=== PATIENT | male | born 1950 | race Caucasian/White ===

== ENCOUNTER 2019-06-01 17:56 | Inpatient (IN) | payer MEDICARE, MEDICAID ==
[2019-06-02 12:49] VITALS: BP 139/80
[2019-06-02] MEDS ORDERED: Magnesium Hydroxide (MOM) 30 mL UDC PO PRN (14:10)
[2019-06-02] MEDS ORDERED: Maalox 30 mL Cup PO PRN (14:10)
[2019-06-02] MEDS ORDERED: GLUCAGON HCl 1 MG KIT IM PRN (15:58)
[2019-06-02] MEDS: INSULIN LISPRO SLIDING SCALE 100 UNITS/ML UNIT SUBQ SCH ×2 (16:45→21:02)
[2019-06-03] MEDS: INSULIN LISPRO SLIDING SCALE 100 UNITS/ML UNIT SUBQ SCH ×4 (06:47→21:55)
[2019-06-03] MEDS: Multivitamin Tab PO SCH (08:40)
[2019-06-03] MEDS: Pantoprazole 40 mg/Packet PO SCH (08:45)
--- NOTE | 2019-06-03 13:16 | Consultation ---
DATE OF CONSULTATION: 06/03/2019 REASON FOR CONSULTATION: Medical management and clearance, admitted on inpatient unit. HISTORY OF PRESENT ILLNESS: This is a 68-year-old male with history of hyperlipidemia, BPH, osteoarthritis, chronic pain syndrome, diabetes, narcolepsy, admitted under the service of Dr. Dowling. The patient denies any fever, chills, no weight loss or chest pain. PAST MEDICAL HISTORY: As mentioned in history of present illness. PAST SURGICAL HISTORY: Status post, T and A. ALLERGIES: No known drug allergies. MEDICATIONS: The patient is on Tylenol, atorvastatin, brimonidine eyedrops, vitamin D, Lexapro, ____, insulin sliding scale, Namenda, metformin, Provigil, multivitamins, pantoprazole, atenolol. FAMILY HISTORY: Noncontributory. SOCIAL HISTORY: The patient is a nonsmoker, nondrinker, no intravenous drug use. 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 The patient is with 1 child. REVIEW OF SYSTEMS: GENERAL: The patient denies any constitutional symptoms. HEENT: The patient with some blurred vision, no pain. LUNGS: No diagnosis of COPD or asthma. HEART: The patient denies hypertension. Denies coronary artery disease. ABDOMEN: No nausea, vomiting or pain. GENITOURINARY: The patient denies any increased frequency, dysuria or hematuria. NEUROLOGIC: No headache, seizure or syncope, history of epilepsy. PSYCHIATRIC: See above. ENDOCRINE: The patient has diabetes. HEMATOLOGY: No ischemia. PHYSICAL EXAMINATION: VITAL SIGNS: Blood pressure 118/66, respiration 20, pulse 82, temperature 97.8. GENERAL: Thin built elderly male patient with a female nurse in the room. NECK: Supple. No masses. LUNGS: Equal breath sounds, otherwise clear to auscultation. HEART: Regular rate and rhythm with systolic ejection murmur. ABDOMEN: Soft, globular. EXTREMITIES: Positive excoriation. NEUROLOGIC: pls refer to dr cruz for mental exam crnial nerve exam 1. The patient is able to smell alcohol swab. 2. Able to read a printed page. 3. Able to move eyeballs both upward and outward 4. Able to move eyebrows inward and downward 5. able to clench teeth and has normal sensation of forehead____. 6. The patient is able to move eyes laterally on both sides 7 abke to move eyebrows upward on both sides 8 able to hear rubbing of fingers on both sides 9 this was offered but refused 10 this was offered but pt refused 11 this was offered but pt refused 12 this was offered but pt refused Motor and sensory were equal and symmetrical. Gait is slow. LABORATORY DATA: Pending. ASSESSMENT AND PLAN: Hypercholesterolemia, BPH, chronic pain syndrome, osteoarthritis, diabetes, narcolepsy, continue the patient on statin medication. Continue oral hypoglycemics and fingerstick. Continue on a proton pump inhibitor as well as pain medications. The patient will be placed on fall precaution. We will continue to follow with you, Dr. Dowling. JOB# [id number]
--- NOTE | 2019-06-03 19:07 | Psychiatric Evaluation ---
DATE OF SERVICE: 06/03/2019 JUSTIFICATION FOR HOSPITALIZATION: Agitation, aggression escalation of behaviors, worsening confusion. HISTORY OF PRESENT ILLNESS: This is a 68-year-old male, currently in the hospital. He believes he is in the hospital for "the virus." The patient is oriented to name, place, not situation, he knows the year, the month, the day of the week. 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 Staff had to put a sign on his door with his name on it because he is wandering into other patients' rooms. At the retirement, he was escalating, intrusive, yelling at staff at times. Staff was fearful he would act out, lash out. PAST PSYCHIATRIC HISTORY: Advanced dementia. FAMILY HISTORY: Unclear. SOCIAL HISTORY: The patient was born in [place], not , has 1 adult son, living in a retirement. MEDICATIONS: Reviewed. MENTAL STATUS EXAMINATION: Unkempt, fair eye contact. Speech, decreased content. Mood "okay." Affect flat. Thought processes were confused, forgetful, disorganized. No current SI or HI. Delusions about running a company. Insight poor. PROVISIONAL DIAGNOSES: Dementia, dementia with behaviors; mood, unspecified; anxiety, unspecified; psychosis, unspecified; rule out delusional disorder. MEDICAL: Please see full H and P. ESTIMATED LENGTH OF STAY: 7-10 days. ASSESSMENT: The patient is requiring hospitalization, aggressive, agitated, delusional. Staff at the assisted could not care for him. PLAN: Treatment plan includes group as well as milieu therapy. I will adjust medications. Continue inpatient hospitalization. CONDITIONS FOR DISCHARGE: Improved mood, improved affect, better control of any anger or agitation. JOB# [id number]
[2019-06-04] MEDS: INSULIN LISPRO SLIDING SCALE 100 UNITS/ML UNIT SUBQ SCH ×4 (06:32→21:25)
[2019-06-04] MEDS: Pantoprazole 40 mg/Packet PO SCH (08:49)
[2019-06-04] MEDS: Multivitamin Tab PO SCH (08:50)
[2019-06-04] MEDS: Escitalopram Oxalate 5 mg Tab PO SCH ×2 (08:53→08:54)
--- NOTE | 2019-06-04 19:58 | Progress Notes ---
DATE: 06/04/2019 COVERING FOR: Dr. Kaleb Dowling. SUBJECTIVE: The patient was interviewed and the case was discussed with staff. The chart and records were reviewed. Per the staff, the patient has been with escalating anger, episodes of confusion and also grandiose delusions. The patient was interviewed this afternoon in the [facility]. The patient reports "I don't know why I am here." The patient reports that "I need to get out of here. 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 The patient in addition reports no side effects to his medications. He also gets increasingly irritable and starts following the provider ____ and delusion. MENTAL STATUS EXAMINATION: The patient is an elderly male with fair hygiene. Limited eye contact. His speech is hyperverbal. His mood and affect appear to be blunted and thought process appears to be loose. He is denying any suicidal or homicidal thoughts. He is denying any hallucinations. He appears to be paranoid and grandiose. He is alert and oriented to name only. His insight, judgment and impulse control appear to be poor at this time. ASSESSMENT: This is a 68-year-old male, admitted to [facility] on a 5150 hold. The patient was admitted due to delusions and escalating anger and behavior issues. The patient at this time has ongoing ____ grandiose delusions that he is training nurses and that he is here to solve the virus problem. He also had escalating anger episode. PLAN: We will continue the patient's acute hospitalization. We will continue the medications as prescribed. We encouraged the patient to verbalize his needs and participate in group and milieu therapy. JOB# [id number]
--- NOTE | 2019-06-04 22:26 | Internal Medicine Prog Note ---
Internal Medicine Subjective - Subjective Patient seen and examined:: with staff, chart reviewed Patient is:: awake, verbal, interactive, talking Per staff patient has:: no adverse event, no episodes of fall, poor oral intake , tolerating meds Internal Medicine Objective - Results Recent Labs: Laboratory Last Values POC Glucose 106 MG/DL (70 - 105) H 06/04/19 21:14 - Physical Exam Vitals and I&O: Vital Signs Temp 98 F 06/04/19 20:11 Pulse 72 06/04/19 21:00 Resp 18 06/04/19 20:11 BP 94/56 06/04/19 21:00 Pulse Ox 98 06/04/19 20:11 Intake & Output 06/04/19 06/04/19 06/05/19 06:59 18:59 06:59 Intake Total 480 240 Balance 480 240 Intake: Oral 480 240 Other: # Voids 1 1 Active Medications: Current Medications Acetaminophen (Tylenol) 650 mg PO Q6H PRN PRN Reason: mild pain Stop: 08/01/19 15:14 Acetaminophen (Tylenol) 650 mg PO Q6H PRN PRN Reason: fever >100.5 Stop: 08/01/19 15:19 Al Hydrox/Mg Hydrox/Simethicone (Maalox) 30 ml PO Q4HR PRN PRN Reason: GI DISTRESS Stop: 08/01/19 14:09 Atorvastatin Calcium (Lipitor) 80 mg PO HS [facility]; Protocol Stop: 08/01/19 20:59 Last Admin: 06/04/19 21:00 Dose: 80 mg Brimonidine Tartrate (Alphagan 0.2% Ophth Soln) 1 drop EACH EYE Q8HR [facility] Stop: 08/02/19 04:59 Last Admin: 06/04/19 21:00 Dose: 1 drop Dextrose (Glutose 40%) 18.75 gm PO PRN PRN PRN Reason: Blood Glucose less than 70 Stop: 08/01/19 15:57 Dorzolamide HCl (Trusopt 2% Ophth Soln) 1 drop EACH EYE BID [facility] Stop: 08/01/19 16:59 Last Admin: 06/04/19 17:05 Dose: 1 drop Ergocalciferol (Vitamin D2) 50,000 iu PO QSUN [facility] Stop: 08/04/19 08:59 Escitalopram Oxalate (Lexapro) 5 mg PO DAILY [facility]; Protocol Stop: 08/02/19 08:59 Last Admin: 06/04/19 08:54 Dose: Not Given Glimepiride (Amaryl) 4 mg PO QDAC [facility] Stop: 08/02/19 07:29 Last Admin: 06/04/19 07:30 Dose: 4 mg Glucagon (Glucagen) 1 mg IM PRN PRN PRN Reason: Blood Glucose less than 70 Stop: 08/01/19 15:57 Insulin Human Lispro (Humalog Insulin Sliding Scale) 0 units SUBQ ACHS [facility]; Protocol Stop: 08/01/19 16:29 Last Admin: 06/04/19 21:25 Dose: Not Given Latanoprost (Xalatan 0.005% Ophth Soln) 1 drop EACH EYE HS [facility] Stop: 08/01/19 20:59 Last Admin: 06/04/19 21:00 Dose: 1 drop Lorazepam (Ativan) 0.5 mg PO Q4HR PRN; Protocol PRN Reason: Anxiety Stop: 07/02/19 14:09 Magnesium Hydroxide (Milk Of Magnesia) 30 ml PO HS PRN PRN Reason: Constipation Memantine (Namenda) 5 mg PO DAILY [facility] Stop: 08/02/19 08:59 Last Admin: 06/04/19 08:50 Dose: 5 mg Metformin HCl (Glucophage) 1,000 mg PO BIDWM [facility] Stop: 08/02/19 11:59 Last Admin: 06/04/19 18:00 Dose: 1,000 mg Modafinil (Provigil) 200 mg PO BID [facility]; Protocol Stop: 08/01/19 16:59 Last Admin: 06/04/19 17:05 Dose: 200 mg Multivitamins/Vitamin C (Theragran) 1 tab PO DAILY [facility] Stop: 08/02/19 08:59 Last Admin: 06/04/19 08:50 Dose: 1 tab Pantoprazole Sodium (Protonix) 20 mg PO DAILY [facility] Stop: 08/02/19 08:59 Last Admin: 06/04/19 08:49 Dose: 20 mg Terazosin HCl (Hytrin) 1 mg PO HS [facility] Stop: 08/01/19 20:59 Last Admin: 06/04/19 21:00 Dose: Not Given Timolol Maleate (Timoptic 0.5% Ophth Soln) 1 drop EACH EYE BID [facility] Stop: 08/01/19 16:59 Last Admin: 06/04/19 18:00 Dose: 1 drop Zolpidem Tartrate (Ambien) 5 mg PO HS PRN PRN Reason: Insomnia Stop: 08/01/19 14:09 General: alert HEENT: NC/AT, PERRLA Neck: Supple, No JVD Lungs: CTAB Cardiovascular: RRR, Normal S1, Normal S2, with murmur Abdomen: soft, non-tender, thin, positive bowel sound Extremities: excoriation Neurological: no change Internal Medicine Assmt/Plan - Assessment Assessment: ASSESSMENT AND PLAN: Hypercholesterolemia, BPH, chronic pain syndrome, osteoarthritis, diabetes, narcolepsy, - Plan Plan: PLAN: continue the patient on statin medication. Continue oral hypoglycemics and fingerstick. Continue on a proton pump inhibitor as well as pain medications. The patient will be placed on fall precaution. We will continue to follow with you, Dr. Dowling.
[2019-06-05] MEDS: INSULIN LISPRO SLIDING SCALE 100 UNITS/ML UNIT SUBQ SCH ×4 (06:59→21:02)
[2019-06-05] MEDS: Pantoprazole 40 mg/Packet PO SCH (08:57)
[2019-06-05] MEDS: Escitalopram Oxalate 5 mg Tab PO SCH (08:58)
[2019-06-05] MEDS: Multivitamin Tab PO SCH (08:58)
--- NOTE | 2019-06-05 16:49 | Progress Notes ---
DATE: 06/05/2019 Covering for Kaleb Dowling M.D. SUBJECTIVE: The patient was interviewed. Case was discussed with staff. Chart and records were reviewed. Per the staff, the patient has been confused. He has been intrusive. He has been very disruptive towards others. He needs constant redirection on the unit and he has poor insight to why he is here in the hospital. I attempted to interview the patient, but the patient was uncooperative. He appears anxious. He is pacing his room. He later followed this provider around and is quite intrusive and needs constant redirection. The patient is making bizarre statements of the virus and also being nursing strainer tender and is not able to state where he will go upon discharge from the hospital. Per the staff, he needs constant redirection and prompting for simple self-care and for eating his meals. MENTAL STATUS EXAMINATION: The patient is an elderly male with fair hygiene. Limited eye contact, pacing his room. Speech is hyperverbal. Mood and affect appears to be blunted. Thought process is loose. He is unable to assess for suicidal or homicidal thoughts due to his poor cooperation. The patient is denying any hallucinations, but appears to be internally preoccupied. He also appears to be paranoid and grandiose and with bizarre delusions. He is alert and oriented to name only. He does understand he is in the hospital, but unable to elaborate much more in terms of location. He is not oriented to date. Also not oriented to situation. His insight, judgment and impulse control appear to be quite poor at this time. ASSESSMENT: A 68-year-old male admitted to [facility] originally on a 5150 hold due to delusional thoughts and escalating anger and behavioral issues at his previous facility. The patient at this time continues to have intrusive, anxious behavior, significant thought disorganization, poor self-care, and needs significant prompting and due to severity of symptoms, the staff need to constantly redirect and prompt the patient for simple self-care needs. PLAN: We will continue the patient's acute hospitalization. We will need to transition the patient on to a 14-day hold for grave disability. We will also continue his current medications as prescribed and increase the patient's Namenda to 5 mg 2 times per day and also increase the patient's Lexapro to 10 mg p.o. daily. We will also encourage the patient to verbalize his needs and participate in group and milieu therapy. No side effects noted to the medications. JOB# [id number]
--- NOTE | 2019-06-05 17:03 | Internal Medicine Prog Note ---
Internal Medicine Subjective - Subjective Patient seen and examined:: with staff, chart reviewed Patient is:: awake, verbal, interactive, talking Per staff patient has:: no adverse event, no episodes of fall, poor oral intake , tolerating meds Internal Medicine Objective - Results Recent Labs: Laboratory Last Values POC Glucose 95 MG/DL (70 - 105) 06/05/19 16:37 - Physical Exam Vitals and I&O: Vital Signs Temp 98.0 F 06/05/19 14:36 Pulse 77 06/05/19 14:36 Resp 20 06/05/19 14:36 BP 116/72 06/05/19 14:36 Pulse Ox 97 06/05/19 14:36 Intake & Output 06/04/19 06/05/19 06/05/19 18:59 06:59 18:59 Intake Total 480 Balance 480 Intake: Oral 480 Other: # Voids 2 Active Medications: Current Medications Acetaminophen (Tylenol) 650 mg PO Q6H PRN PRN Reason: mild pain Stop: 08/01/19 15:14 Acetaminophen (Tylenol) 650 mg PO Q6H PRN PRN Reason: fever >100.5 Stop: 08/01/19 15:19 Al Hydrox/Mg Hydrox/Simethicone (Maalox) 30 ml PO Q4HR PRN PRN Reason: GI DISTRESS Stop: 08/01/19 14:09 Atorvastatin Calcium (Lipitor) 80 mg PO HS [facility]; Protocol Stop: 08/01/19 20:59 Last Admin: 06/04/19 21:00 Dose: 80 mg Brimonidine Tartrate (Alphagan 0.2% Ophth Soln) 1 drop EACH EYE Q8HR [facility] Stop: 08/02/19 04:59 Last Admin: 06/05/19 13:09 Dose: 1 drop Dextrose (Glutose 40%) 18.75 gm PO PRN PRN PRN Reason: BS Below 70 if tolerate po Stop: 08/01/19 15:57 Dorzolamide HCl (Trusopt 2% Ophth Soln) 1 drop EACH EYE BID [facility] Stop: 08/01/19 16:59 Last Admin: 06/05/19 16:09 Dose: 1 drop Ergocalciferol (Vitamin D2) 50,000 iu PO QSUN [facility] Stop: 08/04/19 08:59 Last Admin: 06/05/19 08:58 Dose: 50,000 iu Escitalopram Oxalate (Lexapro) 10 mg PO DAILY [facility]; Protocol Stop: 08/05/19 08:59 Glimepiride (Amaryl) 4 mg PO QDAC [facility] Stop: 08/02/19 07:29 Last Admin: 06/05/19 07:36 Dose: 4 mg Glucagon (Glucagen) 1 mg IM PRN PRN PRN Reason: BS Below 70 if not tolerate po Stop: 08/01/19 15:57 Insulin Human Lispro (Humalog Insulin Sliding Scale) 0 units SUBQ ACHS [facility]; Protocol Stop: 08/01/19 16:29 Last Admin: 06/05/19 16:49 Dose: Not Given Latanoprost (Xalatan 0.005% Ophth Soln) 1 drop EACH EYE HS [facility] Stop: 08/01/19 20:59 Last Admin: 06/04/19 21:00 Dose: 1 drop Lorazepam (Ativan) 0.5 mg PO Q4HR PRN; Protocol PRN Reason: Anxiety Stop: 07/02/19 14:09 Magnesium Hydroxide (Milk Of Magnesia) 30 ml PO HS PRN PRN Reason: Constipation Memantine (Namenda) 5 mg PO BID [facility] Stop: 08/04/19 16:59 Last Admin: 06/05/19 16:11 Dose: 5 mg Metformin HCl (Glucophage) 1,000 mg PO BIDWM [facility] Stop: 08/02/19 11:59 Last Admin: 06/05/19 07:36 Dose: 1,000 mg Modafinil (Provigil) 200 mg PO BID [facility]; Protocol Stop: 08/01/19 16:59 Last Admin: 06/05/19 16:08 Dose: 200 mg Multivitamins/Vitamin C (Theragran) 1 tab PO DAILY [facility] Stop: 08/02/19 08:59 Last Admin: 06/05/19 08:58 Dose: 1 tab Pantoprazole Sodium (Protonix) 20 mg PO DAILY [facility] Stop: 08/02/19 08:59 Last Admin: 06/05/19 08:57 Dose: 20 mg Terazosin HCl (Hytrin) 1 mg PO HS [facility] Stop: 08/01/19 20:59 Last Admin: 06/04/19 21:00 Dose: Not Given Timolol Maleate (Timoptic 0.5% Ophth Soln) 1 drop EACH EYE BID [facility] Stop: 08/01/19 16:59 Last Admin: 06/05/19 16:09 Dose: 1 drop Zolpidem Tartrate (Ambien) 5 mg PO HS PRN PRN Reason: Insomnia Stop: 08/01/19 14:09 General: demented HEENT: NC/AT, PERRLA Neck: Supple, No JVD Lungs: CTAB Cardiovascular: RRR, Normal S1, Normal S2, with murmur Abdomen: soft, non-tender, thin, positive bowel sound Extremities: excoriation Neurological: no change Internal Medicine Assmt/Plan - Assessment Assessment: ASSESSMENT AND PLAN: Hypercholesterolemia, BPH, chronic pain syndrome, osteoarthritis, diabetes, narcolepsy, - Plan Plan: PLAN: continue the patient on statin medication. Continue oral hypoglycemics and fingerstick. Continue on a proton pump inhibitor as well as pain medications. The patient will be placed on fall precaution. We will continue to follow with you, Dr. Dowling.
[2019-06-06] MEDS: INSULIN LISPRO SLIDING SCALE 100 UNITS/ML UNIT SUBQ SCH ×4 (07:00→21:07)
[2019-06-06] MEDS: Pantoprazole 40 mg/Packet PO SCH (08:22)
[2019-06-06] MEDS: Multivitamin Tab PO SCH (08:23)
--- NOTE | 2019-06-06 12:36 | Internal Medicine Prog Note ---
Internal Medicine Subjective - Subjective Patient seen and examined:: with staff, chart reviewed Patient is:: awake, verbal, interactive, talking Per staff patient has:: no adverse event, no episodes of fall, poor oral intake , tolerating meds Internal Medicine Objective - Results Recent Labs: Laboratory Last Values POC Glucose 100 MG/DL (70 - 105) 06/06/19 06:04 - Physical Exam Vitals and I&O: Vital Signs Temp 97.4 F 06/06/19 05:59 Pulse 76 06/06/19 05:59 Resp 18 06/06/19 05:59 BP 125/72 06/06/19 05:59 Pulse Ox 98 06/06/19 05:59 Intake & Output 06/05/19 06/06/19 06/06/19 18:59 06:59 18:59 Intake Total 1000 Balance 1000 Intake: Oral 1000 Other: # Voids 3 3 # Bowel Movements 1 0 Active Medications: Current Medications Acetaminophen (Tylenol) 650 mg PO Q6H PRN PRN Reason: mild pain Stop: 08/01/19 15:14 Acetaminophen (Tylenol) 650 mg PO Q6H PRN PRN Reason: fever >100.5 Stop: 08/01/19 15:19 Al Hydrox/Mg Hydrox/Simethicone (Maalox) 30 ml PO Q4HR PRN PRN Reason: GI DISTRESS Stop: 08/01/19 14:09 Atorvastatin Calcium (Lipitor) 80 mg PO HS [facility]; Protocol Stop: 08/01/19 20:59 Last Admin: 06/05/19 21:01 Dose: 80 mg Brimonidine Tartrate (Alphagan 0.2% Ophth Soln) 1 drop EACH EYE Q8HR [facility] Stop: 08/02/19 04:59 Last Admin: 06/06/19 12:18 Dose: 1 drop Dextrose (Glutose 40%) 18.75 gm PO PRN PRN PRN Reason: BS Below 70 if tolerate po Stop: 08/01/19 15:57 Dorzolamide HCl (Trusopt 2% Ophth Soln) 1 drop EACH EYE BID [facility] Stop: 08/01/19 16:59 Last Admin: 06/06/19 08:24 Dose: 1 drop Ergocalciferol (Vitamin D2) 50,000 iu PO QSUN [facility] Stop: 08/04/19 08:59 Last Admin: 06/05/19 08:58 Dose: 50,000 iu Escitalopram Oxalate (Lexapro) 10 mg PO DAILY [facility]; Protocol Stop: 08/05/19 11:29 Last Admin: 06/06/19 11:30 Dose: 10 mg Glimepiride (Amaryl) 4 mg PO QDAC [facility] Stop: 08/02/19 07:29 Last Admin: 06/06/19 07:01 Dose: Not Given Glucagon (Glucagen) 1 mg IM PRN PRN PRN Reason: BS Below 70 if not tolerate po Stop: 08/01/19 15:57 Insulin Human Lispro (Humalog Insulin Sliding Scale) 0 units SUBQ ACHS [facility]; Protocol Stop: 08/01/19 16:29 Last Admin: 06/06/19 11:21 Dose: Not Given Latanoprost (Xalatan 0.005% Ophth Soln) 1 drop EACH EYE HS [facility] Stop: 08/01/19 20:59 Last Admin: 06/05/19 21:01 Dose: 1 drop Lorazepam (Ativan) 0.5 mg PO Q4HR [facility]; Protocol PRN Reason: Anxiety Stop: 07/02/19 14:09 Last Admin: 06/06/19 08:35 Dose: 0.5 mg Magnesium Hydroxide (Milk Of Magnesia) 30 ml PO HS PRN PRN Reason: Constipation Memantine (Namenda) 5 mg PO BID [facility] Stop: 08/04/19 16:59 Last Admin: 06/06/19 08:23 Dose: 5 mg Metformin HCl (Glucophage) 1,000 mg PO BIDWM [facility] Stop: 08/02/19 11:59 Last Admin: 06/06/19 08:05 Dose: 1,000 mg Modafinil (Provigil) 200 mg PO BID [facility]; Protocol Stop: 08/01/19 16:59 Last Admin: 06/06/19 08:24 Dose: 200 mg Multivitamins/Vitamin C (Theragran) 1 tab PO DAILY [facility] Stop: 08/02/19 08:59 Last Admin: 06/06/19 08:23 Dose: 1 tab Pantoprazole Sodium (Protonix) 20 mg PO DAILY [facility] Stop: 08/02/19 08:59 Last Admin: 06/06/19 08:22 Dose: 20 mg Terazosin HCl (Hytrin) 1 mg PO HS [facility] Stop: 08/01/19 20:59 Last Admin: 06/05/19 21:03 Dose: Not Given Timolol Maleate (Timoptic 0.5% Ophth Soln) 1 drop EACH EYE BID [facility] Stop: 08/01/19 16:59 Last Admin: 06/06/19 08:24 Dose: 1 drop Zolpidem Tartrate (Ambien) 5 mg PO HS PRN PRN Reason: Insomnia Stop: 08/01/19 14:09 General: demented HEENT: NC/AT, PERRLA Neck: Supple, No JVD Lungs: CTAB Cardiovascular: RRR, Normal S1, Normal S2, with murmur Abdomen: soft, non-tender, thin, positive bowel sound Extremities: excoriation Neurological: no change Internal Medicine Assmt/Plan - Assessment Assessment: ASSESSMENT AND PLAN: Hypercholesterolemia, BPH, chronic pain syndrome, osteoarthritis, diabetes, narcolepsy, - Plan Plan: PLAN: continue the patient on statin medication. Continue oral hypoglycemics and fingerstick. Continue on a proton pump inhibitor as well as pain medications. The patient will be placed on fall precaution. We will continue to follow with you, Dr. Dowling.
--- NOTE | 2019-06-06 15:32 | Progress Notes ---
DATE: 06/06/2019 SUBJECTIVE: The patient is currently in the hospital. The patient remains confused, intrusive, getting lost on the unit. Poor insight. Really has no idea why he is here, keeps talking about owing a company, still believing he is here because of "the virus," really has no idea what is going on. Staff noting he has been mildly calmer elderly male, fair hygiene, confused, disoriented, forgetful, asks the same questions over and over again. Still noted to be impulsive, unpredictable, concerns he may act out upon his impulses, strike out, escalate. Medications were noted. Time was spent discussing with the patient. Medications were reviewed. Vitals reviewed. Recent labs were reviewed. Continue dosing of Lexapro. JOB# [id number]
[2019-06-07] MEDS: INSULIN LISPRO SLIDING SCALE 100 UNITS/ML UNIT SUBQ SCH ×4 (06:43→21:36)
[2019-06-07] MEDS: Multivitamin Tab PO SCH (08:18)
[2019-06-07] MEDS: Pantoprazole 40 mg/Packet PO SCH (08:18)
--- NOTE | 2019-06-07 12:47 | Internal Medicine Prog Note ---
Internal Medicine Subjective - Subjective Patient seen and examined:: with staff, chart reviewed Patient is:: awake, verbal, interactive, talking Per staff patient has:: no adverse event, no episodes of fall, poor oral intake , tolerating meds Internal Medicine Objective - Results Recent Labs: Laboratory Last Values POC Glucose 76 MG/DL (70 - 105) 06/07/19 11:10 - Physical Exam Vitals and I&O: Vital Signs Temp 98.6 F 06/07/19 06:04 Pulse 68 06/07/19 06:04 Resp 20 06/07/19 06:04 BP 134/68 06/07/19 06:04 Pulse Ox 96 06/07/19 06:04 Intake & Output 06/06/19 06/07/19 06/07/19 18:59 06:59 18:59 Intake Total 950 Balance 950 Intake: Oral 950 Other: # Voids 4 3 # Bowel Movements 1 0 Active Medications: Current Medications Acetaminophen (Tylenol) 650 mg PO Q6H PRN PRN Reason: mild pain Stop: 08/01/19 15:14 Acetaminophen (Tylenol) 650 mg PO Q6H PRN PRN Reason: fever >100.5 Stop: 08/01/19 15:19 Al Hydrox/Mg Hydrox/Simethicone (Maalox) 30 ml PO Q4HR PRN PRN Reason: GI DISTRESS Stop: 08/01/19 14:09 Atorvastatin Calcium (Lipitor) 80 mg PO HS [facility]; Protocol Stop: 08/01/19 20:59 Last Admin: 06/06/19 20:53 Dose: 80 mg Brimonidine Tartrate (Alphagan 0.2% Ophth Soln) 1 drop EACH EYE Q8HR [facility] Stop: 08/02/19 04:59 Last Admin: 06/07/19 05:45 Dose: 1 drop Dextrose (Glutose 40%) 18.75 gm PO PRN PRN PRN Reason: BS Below 70 if tolerate po Stop: 08/01/19 15:57 Dorzolamide HCl (Trusopt 2% Ophth Soln) 1 drop EACH EYE BID [facility] Stop: 08/01/19 16:59 Last Admin: 06/07/19 08:15 Dose: 1 drop Ergocalciferol (Vitamin D2) 50,000 iu PO QSUN [facility] Stop: 08/04/19 08:59 Last Admin: 06/05/19 08:58 Dose: 50,000 iu Escitalopram Oxalate (Lexapro) 10 mg PO DAILY [facility]; Protocol Stop: 08/05/19 11:29 Last Admin: 06/07/19 08:18 Dose: 10 mg Glimepiride (Amaryl) 4 mg PO QDAC [facility] Stop: 08/02/19 07:29 Last Admin: 06/07/19 06:38 Dose: 4 mg Glucagon (Glucagen) 1 mg IM PRN PRN PRN Reason: BS Below 70 if not tolerate po Stop: 08/01/19 15:57 Insulin Human Lispro (Humalog Insulin Sliding Scale) 0 units SUBQ ACHS [facility]; Protocol Stop: 08/01/19 16:29 Last Admin: 06/07/19 12:41 Dose: Not Given Latanoprost (Xalatan 0.005% Ophth Soln) 1 drop EACH EYE HS [facility] Stop: 08/01/19 20:59 Last Admin: 06/06/19 20:52 Dose: 1 drop Lorazepam (Ativan) 0.5 mg PO Q4HR PRN; Protocol PRN Reason: Anxiety Stop: 07/02/19 14:09 Last Admin: 06/06/19 16:46 Dose: 0.5 mg Magnesium Hydroxide (Milk Of Magnesia) 30 ml PO HS PRN PRN Reason: Constipation Memantine (Namenda) 5 mg PO BID [facility] Stop: 08/04/19 16:59 Last Admin: 06/07/19 08:18 Dose: 5 mg Metformin HCl (Glucophage) 1,000 mg PO BIDWM [facility] Stop: 08/02/19 11:59 Last Admin: 06/07/19 08:18 Dose: 1,000 mg Modafinil (Provigil) 200 mg PO BID [facility]; Protocol Stop: 08/01/19 16:59 Last Admin: 06/07/19 08:16 Dose: 200 mg Multivitamins/Vitamin C (Theragran) 1 tab PO DAILY [facility] Stop: 08/02/19 08:59 Last Admin: 06/07/19 08:18 Dose: 1 tab Pantoprazole Sodium (Protonix) 20 mg PO DAILY [facility] Stop: 08/02/19 08:59 Last Admin: 06/07/19 08:18 Dose: 20 mg Terazosin HCl (Hytrin) 1 mg PO HS [facility] Stop: 08/01/19 20:59 Last Admin: 06/06/19 20:52 Dose: 1 mg Timolol Maleate (Timoptic 0.5% Ophth Soln) 1 drop EACH EYE BID [facility] Stop: 08/01/19 16:59 Last Admin: 06/07/19 08:17 Dose: 1 drop Zolpidem Tartrate (Ambien) 5 mg PO HS PRN PRN Reason: Insomnia Stop: 08/01/19 14:09 Last Admin: 06/06/19 20:53 Dose: 5 mg General: demented HEENT: NC/AT, PERRLA Neck: Supple, No JVD Lungs: CTAB Cardiovascular: RRR, Normal S1, Normal S2, with murmur Abdomen: soft, non-tender, thin, positive bowel sound Extremities: excoriation Neurological: no change Internal Medicine Assmt/Plan - Assessment Assessment: ASSESSMENT AND PLAN: Hypercholesterolemia, BPH, chronic pain syndrome, osteoarthritis, diabetes, narcolepsy, - Plan Plan: PLAN: continue the patient on statin medication. Continue oral hypoglycemics and fingerstick. Continue on a proton pump inhibitor as well as pain medications. The patient will be placed on fall precaution. We will continue to follow with you, Dr. Dowling. Nutritional Asmnt/Malnutr-PDOC - Dietary Evaluation Malnutrition Findings (Please click <Entered> for more info): Nutritional Asmnt/Malnutrition Start: 06/06/19 13: 15 Text: Status: Complete Freq: Protocol: Document 06/06/19 13:15 JULIANN (Rec: 06/06/19 13:18 JULIANN [id number]) Nutritional Asmnt/Malnutrition Patient General Information Nutritional Screening Moderate Risk Diagnosis Psychosis Pertinent Medical Hx/Surgical Hx Hyperlipidemia, BPH, Osteoarthritis, Chronic Pain Syndrome, DM, Narcolepsy Subjective Information Pt is a 68-year-old male admitted on 06/01 d/t agitation and aggression escalation of behaviors, worsening confusion . Pt is eating an estimated 85 % of meals since admit date ( x4 days) Per Meal/Nutrition Activity Record. Dietary is currently providing an estimated 1700 kcals and 90 gm Pro, per pt PO intake this is providing an estimated 1445 kcals and 77g Pro to meet 72% kcal and 96% Pro needs. Will assess menu options and increase kcals on pt tray via director dietetics department work flow. Anthropometrics HT: 511 WT: 181 LB (82.27 kg) BMI: 25.27 (Overweight) GI/ Skin Integrity GI: WNL, Soft, Non-tender BM: 06/04 x1 I/O: 1000/Not Noted Skin: WNL, Intact Nav: 22 Diet Order: [facility] [place] Estimated Energy Needs: ( Geriatric, CBW) 7772-4232 kcals (25-30 kcals/ kg) 80-95g Pro (1.0-1.2 g/kg) 2834-0215 ml (25-30 ml/kg) Current Diet Order/ Nutrition Support [facility] [place] Pertinent Medications Maalox (PRN), Lipitor, Glutose 40% (PRN), Vitamin D2, Amaryl , INS-SS, MOM (PRN), Glucophage, Theragran, Protonix, Provigil Pertinent Labs POC Glucose (last 24 hours): 72, 98, 95, 113, 100 06/01: Glucose 143, A1c 6.1%, Urine Glucose 2+ Nutritional Hx/Data Height 1.8 m Height (Calculated Centimeters) 180.3 Current Weight (lbs) 82.1 kg Weight (Calculated Kilograms) 82.1 Weight (Calculated Grams) 85029.2 [place] Body Weight 172 LB (78.18 kg) % [place] Body Weight 106 Body Mass Index (BMI) 25.2 Weight Status Overweight GI Symptoms GI Symptoms None Last BM 06/04 x1 Skin Integrity/Comment: Skin: WNL, Intact Nav: 22 Estimated Nutritional Goals BEE in Kcals: Using Current wt Calories/Kcals/Kg 25-30 Kcals Calculated 7497-2151 Protein: Using Current wt Protein g/k.0-1.2 Protein Calculated 80-95 Fluid: ml 1182-0821 ml (25-30 ml/kg) Nutritional Problem 1. Problem Problem Impaired nutrient utilization Etiology r/t endocrine dysfunction Signs/Symptoms: aeb labs (06/01) Glucose 143, A1c 6.1%, Urine Glucose 2+. Malnutrition Related to Morbid Obesity Malnutrition related to morbid obesity No Intervention/Recommendation Comments 1.Continue CCHO, Na2gm diet as tolerated. 2.Continue antihyperglycemic medications for glucose control per MD order. Expected Outcomes/Goals Expected Outcomes/Goals 1.PO intake to continue to meet 75% of estimated nutritional needs. 2.Monitor PO intake, wt, nutrition related labs to trend WNL, and skin integrity. 3.F/U as low risk in 7-10 days , 06/12-06/15
--- NOTE | 2019-06-07 13:39 | Progress Notes ---
DATE: 06/07/2019 SUBJECTIVE: The patient was seen. I answered his questions and spent time with him. 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 Medications were reviewed, currently on dosing of Namenda seems to be tolerating this medication fairly well 5 mg twice daily. Pulse of 82. I also spent time with nursing staff, reviewed nursing notes, remains confused, disorganized, very forgetful, believes he is 88 years old, intrusive, disruptive. PLAN: We will continue to monitor and initiate dosing of Aricept. JOB# [id number]
[2019-06-08] MEDS: INSULIN LISPRO SLIDING SCALE 100 UNITS/ML UNIT SUBQ SCH ×4 (07:24→21:33)
[2019-06-08] MEDS: Multivitamin Tab PO SCH (08:18)
[2019-06-08] MEDS: Pantoprazole 40 mg/Packet PO SCH (08:18)
--- NOTE | 2019-06-08 12:41 | Internal Medicine Prog Note ---
Internal Medicine Subjective - Subjective Patient seen and examined:: with staff, chart reviewed Patient is:: awake, verbal, interactive, talking Per staff patient has:: no adverse event, no episodes of fall, poor oral intake , tolerating meds Internal Medicine Objective - Results Recent Labs: Laboratory Last Values POC Glucose 109 MG/DL (70 - 105) H 06/08/19 06:17 - Physical Exam Vitals and I&O: Vital Signs Temp 98.0 F 06/08/19 06:12 Pulse 78 06/08/19 06:12 Resp 20 06/08/19 06:12 BP 130/80 06/08/19 06:12 Pulse Ox 96 06/08/19 06:12 Intake & Output 06/07/19 06/08/19 06/08/19 18:59 06:59 18:59 Intake Total 1300 240 Balance 1300 240 Intake: Oral 1300 240 Other: # Voids 3 2 # Bowel Movements 0 1 Active Medications: Current Medications Acetaminophen (Tylenol) 650 mg PO Q6H PRN PRN Reason: mild pain Stop: 08/01/19 15:14 Acetaminophen (Tylenol) 650 mg PO Q6H PRN PRN Reason: fever >100.5 Stop: 08/01/19 15:19 Al Hydrox/Mg Hydrox/Simethicone (Maalox) 30 ml PO Q4HR PRN PRN Reason: GI DISTRESS Stop: 08/01/19 14:09 Atorvastatin Calcium (Lipitor) 80 mg PO HS [facility]; Protocol Stop: 08/01/19 20:59 Last Admin: 06/07/19 21:33 Dose: 80 mg Brimonidine Tartrate (Alphagan 0.2% Ophth Soln) 1 drop EACH EYE Q8HR [facility] Stop: 08/02/19 04:59 Last Admin: 06/08/19 05:59 Dose: 1 drop Dextrose (Glutose 40%) 18.75 gm PO PRN PRN PRN Reason: BS Below 70 if tolerate po Stop: 08/01/19 15:57 Donepezil HCl (Aricept) 5 mg PO HS [facility] Stop: 08/06/19 20:59 Last Admin: 06/07/19 21:33 Dose: 5 mg Dorzolamide HCl (Trusopt 2% Ophth Soln) 1 drop EACH EYE BID [facility] Stop: 08/01/19 16:59 Last Admin: 06/08/19 08:17 Dose: 1 drop Ergocalciferol (Vitamin D2) 50,000 iu PO QSUN [facility] Stop: 08/04/19 08:59 Last Admin: 06/05/19 08:58 Dose: 50,000 iu Escitalopram Oxalate (Lexapro) 10 mg PO DAILY [facility]; Protocol Stop: 08/05/19 11:29 Last Admin: 06/08/19 08:17 Dose: 10 mg Glimepiride (Amaryl) 4 mg PO QDAC [facility] Stop: 08/02/19 07:29 Last Admin: 06/08/19 07:23 Dose: Not Given Glucagon (Glucagen) 1 mg IM PRN PRN PRN Reason: BS Below 70 if not tolerate po Stop: 08/01/19 15:57 Insulin Human Lispro (Humalog Insulin Sliding Scale) 0 units SUBQ ACHS [facility]; Protocol Stop: 08/01/19 16:29 Last Admin: 06/08/19 11:22 Dose: Not Given Latanoprost (Xalatan 0.005% Oph Soln) 1 drop EACH EYE HS [facility] Stop: 08/01/19 20:59 Last Admin: 06/07/19 21:33 Dose: 1 drop Lorazepam (Ativan) 0.5 mg PO Q4HR PRN; Protocol PRN Reason: Anxiety Stop: 07/02/19 14:09 Last Admin: 06/08/19 08:18 Dose: 0.5 mg Magnesium Hydroxide (Milk Of Magnesia) 30 ml PO HS PRN PRN Reason: Constipation Memantine (Namenda) 5 mg PO BID [facility] Stop: 08/04/19 16:59 Last Admin: 06/08/19 08:17 Dose: 5 mg Metformin HCl (Glucophage) 1,000 mg PO BIDWM [facility] Stop: 08/02/19 11:59 Last Admin: 06/08/19 08:17 Dose: 1,000 mg Modafinil (Provigil) 200 mg PO BID [facility]; Protocol Stop: 08/01/19 16:59 Last Admin: 06/08/19 08:18 Dose: 200 mg Multivitamins/Vitamin C (Theragran) 1 tab PO DAILY [facility] Stop: 08/02/19 08:59 Last Admin: 06/08/19 08:18 Dose: 1 tab Pantoprazole Sodium (Protonix) 20 mg PO DAILY [facility] Stop: 08/02/19 08:59 Last Admin: 06/08/19 08:18 Dose: 20 mg Terazosin HCl (Hytrin) 1 mg PO HS [facility] Stop: 08/01/19 20:59 Last Admin: 06/07/19 21:33 Dose: 1 mg Timolol Maleate (Timoptic 0.5% Ophth Soln) 1 drop EACH EYE BID [facility] Stop: 08/01/19 16:59 Last Admin: 06/08/19 08:17 Dose: 1 drop Zolpidem Tartrate (Ambien) 5 mg PO HS PRN PRN Reason: Insomnia Stop: 08/01/19 14:09 Last Admin: 06/06/19 20:53 Dose: 5 mg General: demented HEENT: NC/AT, PERRLA Neck: Supple, No JVD Lungs: CTAB Cardiovascular: RRR, Normal S1, Normal S2, with murmur Abdomen: soft, non-tender, thin, positive bowel sound Extremities: excoriation Neurological: no change Internal Medicine Assmt/Plan - Assessment Assessment: ASSESSMENT AND PLAN: Hypercholesterolemia, BPH, chronic pain syndrome, osteoarthritis, diabetes, narcolepsy, - Plan Plan: PLAN: continue the patient on statin medication. Continue oral hypoglycemics and fingerstick. Continue on a proton pump inhibitor as well as pain medications. The patient will be placed on fall precaution. We will continue to follow with you, Dr. Dowling. Nutritional Asmnt/Malnutr-PDOC - Dietary Evaluation Malnutrition Findings (Please click <Entered> for more info): Nutritional Asmnt/Malnutrition Start: 06/06/19 13: 15 Text: Status: Complete Freq: Protocol: Document 06/06/19 13:15 JULIANN (Rec: 06/06/19 13:18 JULIANN [id number]) Nutritional Asmnt/Malnutrition Patient General Information Nutritional Screening Moderate Risk Diagnosis Psychosis Pertinent Medical Hx/Surgical Hx Hyperlipidemia, BPH, Osteoarthritis, Chronic Pain Syndrome, DM, Narcolepsy Subjective Information Pt is a 68-year-old male admitted on 06/01 d/t agitation and aggression escalation of behaviors, worsening confusion . Pt is eating an estimated 85 % of meals since admit date ( x4 days) Per Meal/Nutrition Activity Record. Dietary is currently providing an estimated 1700 kcals and 90 gm Pro, per pt PO intake this is providing an estimated 1445 kcals and 77g Pro to meet 72% kcal and 96% Pro needs. Will assess menu options and increase kcals on pt tray via dietary aide work flow. Anthropometrics HT: 511 WT: 181 LB (82.27 kg) BMI: 25.27 (Overweight) GI/ Skin Integrity GI: WNL, Soft, Non-tender BM: 06/04 x1 I/O: 1000/Not Noted Skin: WNL, Intact Nav: 22 Diet Order: [facility] Estimated Energy Needs: ( Geriatric, CBW) 5486-0496 kcals (25-30 kcals/ kg) 80-95g Pro (1.0-1.2 g/kg) 4367-0939 ml (25-30 ml/kg) Current Diet Order/ Nutrition Support [facility] Pertinent Medications Maalox (PRN), Lipitor, Glutose 40% (PRN), Vitamin D2, Amaryl , INS-SS, MOM (PRN), Glucophage, Theragran, Protonix, Provigil Pertinent Labs POC Glucose (last 24 hours): 72, 98, 95, 113, 100 06/01: Glucose 143, A1c 6.1%, Urine Glucose 2+ Nutritional Hx/Data Height 1.8 m Height (Calculated Centimeters) 180.3 Current Weight (lbs) 82.1 kg Weight (Calculated Kilograms) 82.1 Weight (Calculated Grams) 81275.2 [place] Body Weight 172 LB (78.18 kg) % [place] Body Weight 106 Body Mass Index (BMI) 25.2 Weight Status Overweight GI Symptoms GI Symptoms None Last BM 06/04 x1 Skin Integrity/Comment: Skin: WNL, Intact Nav: 22 Estimated Nutritional Goals BEE in Kcals: Using Current wt Calories/Kcals/Kg 25-30 Kcals Calculated 5057-2175 Protein: Using Current wt Protein g/k.0-1.2 Protein Calculated 80-95 Fluid: ml 2737-8785 ml (25-30 ml/kg) Nutritional Problem 1. Problem Problem Impaired nutrient utilization Etiology r/t endocrine dysfunction Signs/Symptoms: aeb labs (06/01) Glucose 143, A1c 6.1%, Urine Glucose 2+. Malnutrition Related to Morbid Obesity Malnutrition related to morbid obesity No Intervention/Recommendation Comments [facility] Na2[facility] diet as tolerated. 2.Continue antihyperglycemic medications for glucose control per MD order. Expected Outcomes/Goals Expected Outcomes/Goals 1.PO intake to continue to meet 75% of estimated nutritional needs. 2.Monitor PO intake, wt, nutrition related labs to trend WNL, and skin integrity. 3.F/U as low risk in 7-10 days , 06/12-06/15
--- NOTE | 2019-06-08 16:25 | Progress Notes ---
DATE: 06/08/2019 The patient slept about 7 hours, calmer, generally more cooperative, engaged, calm on exam, sometimes restless in a Faith chair. 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 Time was spent speaking with the patient and discussion with the staff. Chart reviewed Medications were reviewed, nursing notes were reviewed. Also, any recent vitals were reviewed. We will continue inpatient monitoring. The patient is still impulsive, unpredictable, sometimes gets upset, verbal at times with staff. JOB# [id number]
[2019-06-09] MEDS: INSULIN LISPRO SLIDING SCALE 100 UNITS/ML UNIT SUBQ SCH ×4 (07:04→20:58)
[2019-06-09] MEDS: Pantoprazole 40 mg/Packet PO SCH (08:25)
[2019-06-09] MEDS: Multivitamin Tab PO SCH (08:26)
--- NOTE | 2019-06-09 11:30 | Progress Notes ---
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 Time was spent attempting to speak with the patient, but he is incredibly confused, not really making much sense. PLAN: I will be increasing his dosing of Lexapro today. Ongoing symptoms, safety concerns. JOB# [id number]
--- NOTE | 2019-06-09 12:36 | Internal Medicine Prog Note ---
Internal Medicine Subjective - Subjective Patient seen and examined:: with staff, chart reviewed Patient is:: awake, verbal, interactive, talking Per staff patient has:: no adverse event, no episodes of fall, poor oral intake , tolerating meds Internal Medicine Objective - Results Recent Labs: Laboratory Last Values POC Glucose 119 MG/DL (70 - 105) H 06/09/19 11:58 - Physical Exam Vitals and I&O: Vital Signs Temp 98.4 F 06/09/19 06:32 Pulse 69 06/09/19 06:32 Resp 20 06/09/19 08:00 BP 114/70 06/09/19 06:32 Pulse Ox 97 06/09/19 06:32 Intake & Output 06/08/19 06/09/19 06/09/19 18:59 06:59 18:59 Intake Total 1200 120 400 Balance 1200 120 400 Intake: Oral 960 120 400 Other 240 Other: # Voids 3 3 # Bowel Movements 2 Active Medications: Current Medications Acetaminophen (Tylenol) 650 mg PO Q6H PRN PRN Reason: mild pain Stop: 08/01/19 15:14 Acetaminophen (Tylenol) 650 mg PO Q6H PRN PRN Reason: fever >100.5 Stop: 08/01/19 15:19 Al Hydrox/Mg Hydrox/Simethicone (Maalox) 30 ml PO Q4HR PRN PRN Reason: GI DISTRESS Stop: 08/01/19 14:09 Atorvastatin Calcium (Lipitor) 80 mg PO HS MICHAELA; Protocol Stop: 08/01/19 20:59 Last Admin: 06/08/19 21:12 Dose: 80 mg Brimonidine Tartrate (Alphagan 0.2% Ophth Soln) 1 drop EACH EYE Q8HR MICHAELA Stop: 08/02/19 04:59 Last Admin: 06/09/19 05:30 Dose: Not Given Dextrose (Glutose 40%) 18.75 gm PO PRN PRN PRN Reason: BS Below 70 if tolerate po Stop: 08/01/19 15:57 Donepezil HCl (Aricept) 5 mg PO HS MICHAELA Stop: 08/06/19 20:59 Last Admin: 06/08/19 21:08 Dose: 5 mg Dorzolamide HCl (Trusopt 2% Ophth Soln) 1 drop EACH EYE BID [facility] Stop: 08/01/19 16:59 Last Admin: 06/09/19 08:27 Dose: 1 drop Ergocalciferol (Vitamin D2) 50,000 iu PO QSUN [facility] Stop: 08/04/19 08:59 Last Admin: 06/05/19 08:58 Dose: 50,000 iu Escitalopram Oxalate (Lexapro) 15 mg PO DAILY [facility]; Protocol Stop: 08/09/19 08:59 Glimepiride (Amaryl) 4 mg PO QDAC [facility] Stop: 08/02/19 07:29 Last Admin: 06/09/19 07:04 Dose: Not Given Glucagon (Glucagen) 1 mg IM PRN PRN PRN Reason: BS Below 70 if not tolerate po Stop: 08/01/19 15:57 Insulin Human Lispro (Humalog Insulin Sliding Scale) 0 units SUBQ ACHS [facility]; Protocol Stop: 08/01/19 16:29 Last Admin: 06/09/19 11:30 Dose: Not Given Latanoprost (Xalatan 0.005% Ophth Soln) 1 drop EACH EYE HS [facility] Stop: 08/01/19 20:59 Last Admin: 06/08/19 21:07 Dose: 1 drop Lorazepam (Ativan) 0.5 mg PO Q4HR PRN; Protocol PRN Reason: Anxiety Stop: 07/02/19 14:09 Last Admin: 06/09/19 08:26 Dose: 0.5 mg Magnesium Hydroxide (Milk Of Magnesia) 30 ml PO HS PRN PRN Reason: Constipation Memantine (Namenda) 5 mg PO BID [facility] Stop: 08/04/19 16:59 Last Admin: 06/09/19 08:27 Dose: 5 mg Metformin HCl (Glucophage) 1,000 mg PO BIDWM [facility] Stop: 08/02/19 11:59 Last Admin: 06/09/19 08:00 Dose: 1,000 mg Modafinil (Provigil) 200 mg PO BID [facility]; Protocol Stop: 08/01/19 16:59 Last Admin: 06/09/19 08:25 Dose: 200 mg Multivitamins/Vitamin C (Theragran) 1 tab PO DAILY [facility] Stop: 08/02/19 08:59 Last Admin: 06/09/19 08:26 Dose: 1 tab Pantoprazole Sodium (Protonix) 20 mg PO DAILY [facility] Stop: 08/02/19 08:59 Last Admin: 06/09/19 08:25 Dose: 20 mg Terazosin HCl (Hytrin) 1 mg PO HS MICHAELA Stop: 08/01/19 20:59 Last Admin: 06/08/19 21:11 Dose: 1 mg Timolol Maleate (Timoptic 0.5% Ophth Soln) 1 drop EACH EYE BID MIC[facility]ELA Stop: 08/01/19 16:59 Last Admin: 06/09/19 08:27 Dose: 1 drop Zolpidem Tartrate (Ambien) 5 mg PO HS PRN PRN Reason: Insomnia Stop: 08/01/19 14:09 Last Admin: 06/06/19 20:53 Dose: 5 mg General: demented HEENT: NC/AT, PERRLA Neck: Supple, No JVD Lungs: CTAB Cardiovascular: RRR, Normal S1, Normal S2, with murmur Abdomen: soft, non-tender, thin, positive bowel sound Extremities: excoriation Neurological: no change Internal Medicine Assmt/Plan - Assessment Assessment: ASSESSMENT AND PLAN: Hypercholesterolemia, BPH, chronic pain syndrome, osteoarthritis, diabetes, narcolepsy, - Plan Plan: PLAN: continue the patient on statin medication. Continue oral hypoglycemics and fingerstick. Continue on a proton pump inhibitor as well as pain medications. The patient will be placed on fall precaution. We will continue to follow with you, Dr. Dowling. Nutritional Asmnt/Malnutr-PDOC - Dietary Evaluation Malnutrition Findings (Please click <Entered> for more info): Nutritional Asmnt/Malnutrition Start: 06/06/19 13: 15 Text: Status: Complete Freq: Protocol: Document 06/06/19 13:15 JULIANN (Rec: 06/06/19 13:18 JULIANN [id number]) Nutritional Asmnt/Malnutrition Patient General Information Nutritional Screening Moderate Risk Diagnosis Psychosis Pertinent Medical Hx/Surgical Hx Hyperlipidemia, BPH, Osteoarthritis, Chronic Pain Syndrome, DM, Narcolepsy Subjective Information Pt is a 68-year-old male admitted on 06/01 d/t agitation and aggression escalation of behaviors, worsening confusion . Pt is eating an estimated 85 % of meals since admit date ( x4 days) Per Meal/Nutrition Activity Record. Dietary is currently providing an estimated 1700 kcals and 90 gm Pro, per pt PO intake this is providing an estimated 1445 kcals and 77g Pro to meet 72% kcal and 96% Pro needs. Will assess menu options and increase kcals on pt tray via therapeutic dietitian work flow. Anthropometrics HT: 511 WT: 181 LB (82.27 kg) BMI: 25.27 (Overweight) GI/ Skin Integrity GI: WNL, Soft, Non-tender BM: 06/04 x1 I/O: 1000/Not Noted Skin: WNL, Intact Nav: 22 Diet Order: [facility] Estimated Energy Needs: ( Geriatric, CBW) 9438-3874 kcals (25-30 kcals/ kg) 80-95g Pro (1.0-1.2 g/kg) 1156-0343 ml (25-30 ml/kg) Current Diet Order/ Nutrition Support [facility] Pertinent Medications Maalox (PRN), Lipitor, Glutose 40% (PRN), Vitamin D2, Amaryl , INS-SS, MOM (PRN), Glucophage, Theragran, Protonix, Provigil Pertinent Labs POC Glucose (last 24 hours): 72, 98, 95, 113, 100 06/01: Glucose 143, A1c 6.1%, Urine Glucose 2+ Nutritional Hx/Data Height 1.8 m Height (Calculated Centimeters) 180.3 Current Weight (lbs) 82.1 kg Weight (Calculated Kilograms) 82.1 Weight (Calculated Grams) 99668.2 [place] Body Weight 172 LB (78.18 kg) % [place] Body Weight 106 Body Mass Index (BMI) 25.2 Weight Status Overweight GI Symptoms GI Symptoms None Last BM 06/04 x1 Skin Integrity/Comment: Skin: WNL, Intact Nav: 22 Estimated Nutritional Goals BEE in Kcals: Using Current wt Calories/Kcals/Kg 25-30 Kcals Calculated 7267-5906 Protein: Using Current wt Protein g/k.0-1.2 Protein Calculated 80-95 Fluid: ml 5315-4808 ml (25-30 ml/kg) Nutritional Problem 1. Problem Problem Impaired nutrient utilization Etiology r/t endocrine dysfunction Signs/Symptoms: aeb labs (06/01) Glucose 143, A1c 6.1%, Urine Glucose 2+. Malnutrition Related to Morbid Obesity Malnutrition related to morbid obesity No Intervention/Recommendation Comments 1.Continue CCHO, Na2gm diet as tolerated. 2.Continue antihyperglycemic medications for glucose control per MD order. Expected Outcomes/Goals Expected Outcomes/Goals 1.PO intake to continue to meet 75% of estimated nutritional needs. 2.Monitor PO intake, wt, nutrition related labs to trend WNL, and skin integrity. 3.F/U as low risk in 7-10 days , 06/12-06/15
[2019-06-10] MEDS: INSULIN LISPRO SLIDING SCALE 100 UNITS/ML UNIT SUBQ SCH ×2 (07:05→17:03)
[2019-06-10] MEDS: Pantoprazole 40 mg/Packet PO SCH (08:23)
[2019-06-10] MEDS: Multivitamin Tab PO SCH (08:24)
--- NOTE | 2019-06-10 11:51 | Progress Notes ---
DATE: 06/10/2019 SUBJECTIVE: The patient apparently AWOL today. They found him in the street, brought him back, rushed out of the door, trying to get out. Police had to be called, escalating, aggressive. Has no recollection of anything, apparently defecated on the floor. 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 Time was spent speaking with the patient. He is extremely confused, really has no idea what is going on or where he is, does not know why he is currently in the hospital. 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 Complicated case. Poor efficacy thus far to medications. PLAN: We will initiate dosing of antipsychotic medications to manage with delusions, aggressive behaviors. I spoke with nursing staff. Medications were reviewed. Labs were reviewed. Initiate Risperdal. DICTATION ENDS HERE JOB# [id number]
--- NOTE | 2019-06-10 12:53 | Internal Medicine Prog Note ---
Internal Medicine Subjective - Subjective Patient seen and examined:: with staff, chart reviewed Patient is:: awake, verbal, interactive, talking Per staff patient has:: no adverse event, no episodes of fall, poor oral intake , tolerating meds Internal Medicine Objective - Results Recent Labs: Laboratory Last Values POC Glucose 124 MG/DL (70 - 105) H 06/10/19 06:59 - Physical Exam Vitals and I&O: Vital Signs Temp 97.7 F 06/10/19 05:17 Pulse 72 06/10/19 05:17 Resp 16 06/10/19 08:00 BP 118/74 06/10/19 05:17 Pulse Ox 96 06/10/19 05:17 Intake & Output 06/09/19 06/10/19 06/10/19 18:59 06:59 18:59 Intake Total 1000 240 Balance 1000 240 Intake: Oral 1000 240 Other: # Voids 2 # Bowel Movements 1 0 Active Medications: Current Medications Acetaminophen (Tylenol) 650 mg PO Q6H PRN PRN Reason: mild pain Stop: 08/01/19 15:14 Acetaminophen (Tylenol) 650 mg PO Q6H PRN PRN Reason: fever >100.5 Stop: 08/01/19 15:19 Al Hydrox/Mg Hydrox/Simethicone (Maalox) 30 ml PO Q4HR PRN PRN Reason: GI DISTRESS Stop: 08/01/19 14:09 Atorvastatin Calcium (Lipitor) 80 mg PO HS MICHAELA; Protocol Stop: 08/01/19 20:59 Last Admin: 06/09/19 20:58 Dose: 80 mg Brimonidine Tartrate (Alphagan 0.2% Ophth Soln) 1 drop EACH EYE Q8HR MICHAELA Stop: 08/02/19 04:59 Last Admin: 06/09/19 20:56 Dose: 1 drop Dextrose (Glutose 40%) 18.75 gm PO PRN PRN PRN Reason: BS Below 70 if tolerate po Stop: 08/01/19 15:57 Donepezil HCl (Aricept) 5 mg PO HS MICHAELA Stop: 08/06/19 20:59 Last Admin: 06/09/19 20:58 Dose: 5 mg Dorzolamide HCl (Trusopt 2% Ophth Soln) 1 drop EACH EYE BID MICHAELA Stop: 08/01/19 16:59 Last Admin: 06/10/19 09:36 Dose: 1 drop Ergocalciferol (Vitamin D2) 50,000 iu PO QSUN [facility] Stop: 08/04/19 08:59 Last Admin: 06/05/19 08:58 Dose: 50,000 iu Escitalopram Oxalate (Lexapro) 15 mg PO DAILY [facility]; Protocol Stop: 08/09/19 08:59 Last Admin: 06/10/19 08:24 Dose: 15 mg Glimepiride (Amaryl) 4 mg PO QDAC [facility] Stop: 08/02/19 07:29 Last Admin: 06/10/19 08:24 Dose: 4 mg Glucagon (Glucagen) 1 mg IM PRN PRN PRN Reason: BS Below 70 if not tolerate po Stop: 08/01/19 15:57 Insulin Human Lispro (Humalog Insulin Sliding Scale) 0 units SUBQ BIDAC [facility]; Protocol Stop: 08/09/19 16:29 Latanoprost (Xalatan 0.005% Ophth Soln) 1 drop EACH EYE HS [facility] Stop: 08/01/19 20:59 Last Admin: 06/09/19 20:57 Dose: 1 drop Lorazepam (Ativan) 0.5 mg PO Q4HR PRN; Protocol PRN Reason: Anxiety Stop: 07/02/19 14:09 Last Admin: 06/10/19 08:25 Dose: 0.5 mg Magnesium Hydroxide (Milk Of Magnesia) 30 ml PO HS PRN PRN Reason: Constipation Memantine (Namenda) 5 mg PO BID [facility] Stop: 08/04/19 16:59 Last Admin: 06/10/19 08:24 Dose: 5 mg Metformin HCl (Glucophage) 1,000 mg PO BIDWM [facility] Stop: 08/02/19 11:59 Last Admin: 06/10/19 08:23 Dose: 1,000 mg Modafinil (Provigil) 200 mg PO BID [facility]; Protocol Stop: 08/01/19 16:59 Last Admin: 06/10/19 08:24 Dose: 200 mg Multivitamins/Vitamin C (Theragran) 1 tab PO DAILY [facility] Stop: 08/02/19 08:59 Last Admin: 06/10/19 08:24 Dose: 1 tab Pantoprazole Sodium (Protonix) 20 mg PO QDAC [facility] Stop: 06/03/20 07:29 Risperidone (Risperdal) 0.25 mg PO BID MICHAELA; Protocol Stop: 08/09/19 16:59 Terazosin HCl (Hytrin) 1 mg PO HS MICHAELA Stop: 08/01/19 20:59 Last Admin: 06/09/19 20:59 Dose: 1 mg Timolol Maleate (Timoptic 0.5% Ophth Soln) 1 drop EACH EYE BID MICHAELA Stop: 08/01/19 16:59 Last Admin: 06/10/19 09:36 Dose: 1 drop Zolpidem Tartrate (Ambien) 5 mg PO HS PRN PRN Reason: Insomnia Stop: 08/01/19 14:09 Last Admin: 06/09/19 21:01 Dose: 5 mg General: demented HEENT: NC/AT, PERRLA Neck: Supple, No JVD Lungs: CTAB Cardiovascular: RRR, Normal S1, Normal S2, with murmur Abdomen: soft, non-tender, thin, positive bowel sound Extremities: excoriation Neurological: no change Internal Medicine Assmt/Plan - Assessment Assessment: ASSESSMENT AND PLAN: Hypercholesterolemia, BPH, chronic pain syndrome, osteoarthritis, diabetes, narcolepsy, - Plan Plan: PLAN: continue the patient on statin medication. Continue oral hypoglycemics and fingerstick. Continue on a proton pump inhibitor as well as pain medications. The patient will be placed on fall precaution. We will continue to follow with you, Dr. Dowling. Nutritional Asmnt/Malnutr-PDOC - Dietary Evaluation Malnutrition Findings (Please click <Entered> for more info): Nutritional Asmnt/Malnutrition Start: 06/06/19 13: 15 Text: Status: Complete Freq: Protocol: Document 06/06/19 13:15 JULIANN (Rec: 06/06/19 13:18 JULIANN [id number]) Nutritional Asmnt/Malnutrition Patient General Information Nutritional Screening Moderate Risk Diagnosis Psychosis Pertinent Medical Hx/Surgical Hx Hyperlipidemia, BPH, Osteoarthritis, Chronic Pain Syndrome, DM, Narcolepsy Subjective Information Pt is a 68-year-old male admitted on 06/01 d/t agitation and aggression escalation of behaviors, worsening confusion . Pt is eating an estimated 85 % of meals since admit date ( x4 days) Per Meal/Nutrition Activity Record. Dietary is currently providing an estimated 1700 kcals and 90 gm Pro, per pt PO intake this is providing an estimated 1445 kcals and 77g Pro to meet 72% kcal and 96% Pro needs. Will assess menu options and increase kcals on pt tray via dietetic tech work flow. Anthropometrics HT: 511 WT: 181 LB (82.27 kg) BMI: 25.27 (Overweight) GI/ Skin Integrity GI: WNL, Soft, Non-tender BM: 06/04 x1 I/O: 1000/Not Noted Skin: WNL, Intact Nav: 22 Diet Order: [facility] Estimated Energy Needs: ( Geriatric, CBW) 1200-8574 kcals (25-30 kcals/ kg) 80-95g Pro (1.0-1.2 g/kg) 8286-7855 ml (25-30 ml/kg) Current Diet Order/ Nutrition Support [facility] Pertinent Medications Maalox (PRN), Lipitor, Glutose 40% (PRN), Vitamin D2, Amaryl , INS-SS, MOM (PRN), Glucophage, Theragran, Protonix, Provigil Pertinent Labs POC Glucose (last 24 hours): 72, 98, 95, 113, 100 06/01: Glucose 143, A1c 6.1%, Urine Glucose 2+ Nutritional Hx/Data Height 1.8 m Height (Calculated Centimeters) 180.3 Current Weight (lbs) 82.1 kg Weight (Calculated Kilograms) 82.1 Weight (Calculated Grams) 74331.2 [place] Body Weight 172 LB (78.18 kg) % [place] Body Weight 106 Body Mass Index (BMI) 25.2 Weight Status Overweight GI Symptoms GI Symptoms None Last BM 06/04 x1 Skin Integrity/Comment: Skin: WNL, Intact Nav: 22 Estimated Nutritional Goals BEE in Kcals: Using Current wt Calories/Kcals/Kg 25-30 Kcals Calculated 0316-2964 Protein: Using Current wt Protein g/k.0-1.2 Protein Calculated 80-95 Fluid: ml 2107-8630 ml (25-30 ml/kg) Nutritional Problem 1. Problem Problem Impaired nutrient utilization Etiology r/t endocrine dysfunction Signs/Symptoms: aeb labs (06/01) Glucose 143, A1c 6.1%, Urine Glucose 2+. Malnutrition Related to Morbid Obesity Malnutrition related to morbid obesity No Intervention/Recommendation Comments [facility] Na[facility] as tolerated. 2.Continue antihyperglycemic medications for glucose control per MD order. Expected Outcomes/Goals Expected Outcomes/Goals 1.PO intake to continue to meet 75% of estimated nutritional needs. 2.Monitor PO intake, wt, nutrition related labs to trend WNL, and skin integrity. 3.F/U as low risk in 7-10 days , 06/12-06/15
--- NOTE | 2019-06-11 06:35 | Progress Notes ---
DATE: 06/11/2019 SUBJECTIVE: The patient is a 68-year-old male who remains delusional. Sleeping, but arousable, extremely confused, withdrawn, preoccupied, ruminative, gets lost on the units, goes into __. The patient believes he is here to have surgery, been asking about where the airplane will land. I spend time attempting to speak with the patient, but he is extremely confused, extremely disoriented. Per staff, wandering behaviors, ongoing delusions, perceptual disturbances. Has been defecating on the floor. At one point AWOL from the unit. The patient is currently on Risperdal for delusions behaviors. Time was also spent reviewing nursing chart. Nursing notes. Labs were reviewed. Vitals were reviewed. Blood pressure 113/66, pulse of 81. Glucose checked on 06/09/2019, came in at 119. MENTAL STATUS EXAMINATION: Stated age, sleeping, but arousable, confused, disoriented, ongoing delusions, perceptual disturbances. No SI, no HI, ruminative, nonsensical. PLAN: We will continue to monitor, slowly titrate dosing of Risperdal. Continue to orient the patient. JOB# [id number]
[2019-06-11] MEDS: INSULIN LISPRO SLIDING SCALE 100 UNITS/ML UNIT SUBQ SCH ×2 (06:40→17:30)
[2019-06-11] MEDS: Pantoprazole 40 mg/Packet PO SCH (06:59)
[2019-06-11] MEDS: Multivitamin Tab PO SCH (09:10)
--- NOTE | 2019-06-11 11:45 | Internal Medicine Prog Note ---
Internal Medicine Subjective - Subjective Patient seen and examined:: with staff, chart reviewed Patient is:: awake, verbal, interactive, talking Per staff patient has:: no adverse event, no episodes of fall, poor oral intake , tolerating meds Internal Medicine Objective - Results Recent Labs: Laboratory Last Values POC Glucose 122 MG/DL (70 - 105) H 06/11/19 11:26 - Physical Exam Vitals and I&O: Vital Signs Temp 97.8 F 06/11/19 05:41 Pulse 67 06/11/19 05:41 Resp 17 06/11/19 08:00 BP 119/72 06/11/19 05:41 Pulse Ox 97 06/11/19 05:41 Intake & Output 06/10/19 06/11/19 06/11/19 18:59 06:59 18:59 Intake Total 1000 300 Balance 1000 300 Intake: Oral 1000 300 Other: # Voids 4 1 # Bowel Movements 1 0 Active Medications: Current Medications Acetaminophen (Tylenol) 650 mg PO Q6H PRN PRN Reason: mild pain Stop: 08/01/19 15:14 Acetaminophen (Tylenol) 650 mg PO Q6H PRN PRN Reason: fever >100.5 Stop: 08/01/19 15:19 Al Hydrox/Mg Hydrox/Simethicone (Maalox) 30 ml PO Q4HR PRN PRN Reason: GI DISTRESS Stop: 08/01/19 14:09 Atorvastatin Calcium (Lipitor) 80 mg PO HS [facility]; Protocol Stop: 08/01/19 20:59 Last Admin: 06/10/19 21:29 Dose: 80 mg Brimonidine Tartrate (Alphagan 0.2% Ophth Soln) 1 drop EACH EYE Q8HR [facility] Stop: 08/02/19 04:59 Last Admin: 06/11/19 05:58 Dose: 1 drop Dextrose (Glutose 40%) 18.75 gm PO PRN PRN PRN Reason: BS Below 70 if tolerate po Stop: 08/01/19 15:57 Last Admin: 06/10/19 20:17 Dose: 18.75 gm Donepezil HCl (Aricept) 5 mg PO HS [facility] Stop: 08/06/19 20:59 Last Admin: 06/10/19 21:29 Dose: 5 mg Dorzolamide HCl (Trusopt 2% Ophth Soln) 1 drop EACH EYE BID [facility] Stop: 08/01/19 16:59 Last Admin: 06/11/19 09:15 Dose: 1 drop Ergocalciferol (Vitamin D2) 50,000 iu PO QSUN [facility] Stop: 08/04/19 08:59 Last Admin: 06/05/19 08:58 Dose: 50,000 iu Escitalopram Oxalate (Lexapro) 15 mg PO DAILY [facility]; Protocol Stop: 08/09/19 08:59 Last Admin: 06/11/19 09:09 Dose: 15 mg Glimepiride (Amaryl) 4 mg PO QDAC [facility] Stop: 08/02/19 07:29 Last Admin: 06/11/19 07:31 Dose: Not Given Glucagon (Glucagen) 1 mg IM PRN PRN PRN Reason: BS Below 70 if not tolerate po Stop: 08/01/19 15:57 Insulin Human Lispro (Humalog Insulin Sliding Scale) 0 units SUBQ BIDAC [facility]; Protocol Stop: 08/09/19 16:29 Last Admin: 06/11/19 06:40 Dose: Not Given Latanoprost (Xalatan 0.005% Ophth Soln) 1 drop EACH EYE HS [facility] Stop: 08/01/19 20:59 Last Admin: 06/10/19 21:29 Dose: 1 drop Lorazepam (Ativan) 0.5 mg PO Q4HR PRN; Protocol PRN Reason: Anxiety Stop: 07/02/19 14:09 Last Admin: 06/10/19 08:25 Dose: 0.5 mg Magnesium Hydroxide (Milk Of Magnesia) 30 ml PO HS PRN PRN Reason: Constipation Memantine (Namenda) 5 mg PO BID [facility] Stop: 08/04/19 16:59 Last Admin: 06/11/19 09:10 Dose: 5 mg Metformin HCl (Glucophage) 1,000 mg PO BIDWM [facility] Stop: 08/02/19 11:59 Last Admin: 06/11/19 08:11 Dose: 1,000 mg Modafinil (Provigil) 200 mg PO BID [facility]; Protocol Stop: 08/01/19 16:59 Last Admin: 06/11/19 09:10 Dose: 200 mg Multivitamins/Vitamin C (Theragran) 1 tab PO DAILY [facility] Stop: 08/02/19 08:59 Last Admin: 06/11/19 09:10 Dose: 1 tab Pantoprazole Sodium (Protonix) 20 mg PO QDAC [facility] Stop: 08/10/19 07:29 Last Admin: 06/11/19 06:59 Dose: 20 mg Risperidone (Risperdal) 0.25 mg PO BID [facility]; Protocol Stop: 08/09/19 16:59 Last Admin: 06/11/19 09:10 Dose: 0.25 mg Terazosin HCl (Hytrin) 1 mg PO HS [facility] Stop: 08/01/19 20:59 Last Admin: 06/10/19 21:27 Dose: 1 mg Timolol Maleate (Timoptic 0.5% Ophth Soln) 1 drop EACH EYE BID [facility] Stop: 08/01/19 16:59 Last Admin: 06/11/19 09:15 Dose: 1 drop Zolpidem Tartrate (Ambien) 5 mg PO HS PRN PRN Reason: Insomnia Stop: 08/01/19 14:09 Last Admin: 06/09/19 21:01 Dose: 5 mg General: demented HEENT: NC/AT, PERRLA Neck: Supple, No JVD Lungs: CTAB Cardiovascular: RRR, Normal S1, Normal S2, with murmur Abdomen: soft, non-tender, thin, positive bowel sound Extremities: excoriation Neurological: no change Internal Medicine Assmt/Plan - Assessment Assessment: ASSESSMENT AND PLAN: Hypercholesterolemia, BPH, chronic pain syndrome, osteoarthritis, diabetes, narcolepsy, - Plan Plan: PLAN: continue the patient on statin medication. Continue oral hypoglycemics and fingerstick. Continue on a proton pump inhibitor as well as pain medications. The patient will be placed on fall precaution. We will continue to follow with you, Dr. Dowling. Nutritional Asmnt/Malnutr-PDOC - Dietary Evaluation Malnutrition Findings (Please click <Entered> for more info): Nutritional Asmnt/Malnutrition Start: 06/06/19 13: 15 Text: Status: Complete Freq: Protocol: Document 06/06/19 13:15 JULIANN (Rec: 06/06/19 13:18 JULIANN [email or web address]) Nutritional Asmnt/Malnutrition Patient General Information Nutritional Screening Moderate Risk Diagnosis Psychosis Pertinent Medical Hx/Surgical Hx Hyperlipidemia, BPH, Osteoarthritis, Chronic Pain Syndrome, DM, Narcolepsy Subjective Information Pt is a 68-year-old male admitted on 06/01 d/t agitation and aggression escalation of behaviors, worsening confusion . Pt is eating an estimated 85 % of meals since admit date ( x4 days) Per Meal/Nutrition Activity Record. Dietary is currently providing an estimated 1700 kcals and 90 gm Pro, per pt PO intake this is providing an estimated 1445 kcals and 77g Pro to meet 72% kcal and 96% Pro needs. Will assess menu options and increase kcals on pt tray via delinquent account clerk work flow. Anthropometrics HT: 511 WT: 181 LB (82.27 kg) BMI: 25.27 (Overweight) GI/ Skin Integrity GI: WNL, Soft, Non-tender BM: 06/04 x1 I/O: 1000/Not Noted Skin: WNL, Intact Nav: 22 Diet Order: [facility] Estimated Energy Needs: ( Geriatric, CBW) 2177-3413 kcals (25-30 kcals/ kg) 80-95g Pro (1.0-1.2 g/kg) 8870-2956 ml (25-30 ml/kg) Current Diet Order/ Nutrition Support [facility] Pertinent Medications Maalox (PRN), Lipitor, Glutose 40% (PRN), Vitamin D2, Amaryl , INS-SS, MOM (PRN), Glucophage, Theragran, Protonix, Provigil Pertinent Labs POC Glucose (last 24 hours): 72, 98, 95, 113, 100 06/01: Glucose 143, A1c 6.1%, Urine Glucose 2+ Nutritional Hx/Data Height 1.8 m Height (Calculated Centimeters) 180.3 Current Weight (lbs) 82.1 kg Weight (Calculated Kilograms) 82.1 Weight (Calculated Grams) 84627.2 [place] Body Weight 172 LB (78.18 kg) % [place] Body Weight 106 Body Mass Index (BMI) 25.2 Weight Status Overweight GI Symptoms GI Symptoms None Last BM 06/04 x1 Skin Integrity/Comment: Skin: WNL, Intact Nav: 22 Estimated Nutritional Goals BEE in Kcals: Using Current wt Calories/Kcals/Kg 25-30 Kcals Calculated 3604-2144 Protein: Using Current wt Protein g/k.0-1.2 Protein Calculated 80-95 Fluid: ml 4932-9219 ml (25-30 ml/kg) Nutritional Problem 1. Problem Problem Impaired nutrient utilization Etiology r/t endocrine dysfunction Signs/Symptoms: aeb labs (06/01) Glucose 143, A1c 6.1%, Urine Glucose 2+. Malnutrition Related to Morbid Obesity Malnutrition related to morbid obesity No Intervention/Recommendation Comments 1.Continue CCHO, Na2gm diet as tolerated. 2.Continue antihyperglycemic medications for glucose control per MD order. Expected Outcomes/Goals Expected Outcomes/Goals 1.PO intake to continue to meet 75% of estimated nutritional needs. 2.Monitor PO intake, wt, nutrition related labs to trend WNL, and skin integrity. 3.F/U as low risk in 7-10 days , 06/12-06/15
[2019-06-12] MEDS: INSULIN LISPRO SLIDING SCALE 100 UNITS/ML UNIT SUBQ SCH ×2 (06:38→17:43)
[2019-06-12] MEDS: Pantoprazole 40 mg/Packet PO SCH (06:42)
--- NOTE | 2019-06-12 06:47 | Progress Notes ---
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 Time was spent speaking with the patient, although he is extremely confused. Nursing notes were reviewed as well. Labs were reviewed. Medications were reviewed. Complicated case. Difficult to control symptoms, exacerbated by multiple medical problems including high cholesterol, BPH, chronic pain syndrome, osteoarthritis, diabetes, narcolepsy. On exam, unkempt, still wandering, flat affect and ruminative. No SI, no HI, but delusional, poor insight, poor judgment. PLAN: We will continue inpatient monitoring, complicated case. Difficult to control symptoms. I will be increasing his dosing of Risperdal today. JOB# [id number]
[2019-06-12] MEDS: Multivitamin Tab PO SCH (08:49)
--- NOTE | 2019-06-12 13:33 | Internal Medicine Prog Note ---
Internal Medicine Subjective - Subjective Patient seen and examined:: with staff, chart reviewed Patient is:: awake, verbal, interactive, talking Per staff patient has:: no adverse event, no episodes of fall, poor oral intake , tolerating meds Internal Medicine Objective - Results Recent Labs: Laboratory Last Values POC Glucose 108 MG/DL (70 - 105) H 06/12/19 06:31 - Physical Exam Vitals and I&O: Vital Signs Temp 98.3 F 06/12/19 05:43 Pulse 71 06/12/19 05:43 Resp 19 06/12/19 05:43 BP 139/84 06/12/19 05:43 Pulse Ox 99 06/12/19 05:43 Intake & Output 06/11/19 06/12/19 06/12/19 18:59 06:59 18:59 Intake Total 300 Balance 300 Intake: Oral 300 Other: # Voids 3 1 # Bowel Movements 0 0 Stool Characteristics Soft Formed Brown Active Medications: Current Medications Acetaminophen (Tylenol) 650 mg PO Q6H PRN PRN Reason: mild pain Stop: 08/01/19 15:14 Acetaminophen (Tylenol) 650 mg PO Q6H PRN PRN Reason: fever >100.5 Stop: 08/01/19 15:19 Al Hydrox/Mg Hydrox/Simethicone (Maalox) 30 ml PO Q4HR PRN PRN Reason: GI DISTRESS Stop: 08/01/19 14:09 Atorvastatin Calcium (Lipitor) 80 mg PO HS [facility]; Protocol Stop: 08/01/19 20:59 Last Admin: 06/11/19 21:04 Dose: 80 mg Brimonidine Tartrate (Alphagan 0.2% Ophth Soln) 1 drop EACH EYE Q8HR [facility] Stop: 08/02/19 04:59 Last Admin: 06/12/19 08:52 Dose: 1 drop Dextrose (Glutose 40%) 18.75 gm PO PRN PRN PRN Reason: BS Below 70 if tolerate po Stop: 08/01/19 15:57 Last Admin: 06/10/19 20:17 Dose: 18.75 gm Donepezil HCl (Aricept) 5 mg PO HS [facility] Stop: 08/06/19 20:59 Last Admin: 06/11/19 21:02 Dose: 5 mg Dorzolamide HCl (Trusopt 2% Ophth Soln) 1 drop EACH EYE BID [facility] Stop: 08/01/19 16:59 Last Admin: 06/12/19 08:52 Dose: 1 drop Ergocalciferol (Vitamin D2) 50,000 iu PO QSUN [facility] Stop: 08/04/19 08:59 Last Admin: 06/12/19 08:57 Dose: 50,000 iu Escitalopram Oxalate (Lexapro) 15 mg PO DAILY [facility]; Protocol Stop: 08/09/19 08:59 Last Admin: 06/12/19 08:47 Dose: 15 mg Glimepiride (Amaryl) 4 mg PO QDAC [facility] Stop: 08/02/19 07:29 Last Admin: 06/12/19 06:38 Dose: Not Given Glucagon (Glucagen) 1 mg IM PRN PRN PRN Reason: BS Below 70 if not tolerate po Stop: 08/01/19 15:57 Insulin Human Lispro (Humalog Insulin Sliding Scale) 0 units SUBQ BIDAC [facility]; Protocol Stop: 08/09/19 16:29 Last Admin: 06/12/19 06:38 Dose: Not Given Latanoprost (Xalatan 0.005% Ophth Soln) 1 drop EACH EYE HS [facility] Stop: 08/01/19 20:59 Last Admin: 06/11/19 21:04 Dose: 1 drop Lorazepam (Ativan) 0.5 mg PO Q4HR PRN; Protocol PRN Reason: Anxiety Stop: 07/02/19 14:09 Last Admin: 06/11/19 19:38 Dose: 0.5 mg Magnesium Hydroxide (Milk Of Magnesia) 30 ml PO HS PRN PRN Reason: Constipation Memantine (Namenda) 5 mg PO BID [facility] Stop: 08/04/19 16:59 Last Admin: 06/12/19 08:49 Dose: 5 mg Metformin HCl (Glucophage) 1,000 mg PO BIDWM [facility] Stop: 08/02/19 11:59 Last Admin: 06/12/19 08:46 Dose: 1,000 mg Modafinil (Provigil) 200 mg PO BID [facility]; Protocol Stop: 08/01/19 16:59 Last Admin: 06/12/19 08:49 Dose: 200 mg Multivitamins/Vitamin C (Theragran) 1 tab PO DAILY [facility] Stop: 08/02/19 08:59 Last Admin: 06/12/19 08:49 Dose: 1 tab Pantoprazole Sodium (Protonix) 20 mg PO QDAC [facility] Stop: 08/10/19 07:29 Last Admin: 06/12/19 06:42 Dose: 20 mg Risperidone (Risperdal) 0.5 mg PO BID [facility]; Protocol Stop: 08/11/19 08:59 Last Admin: 06/12/19 08:48 Dose: 0.5 mg Terazosin HCl (Hytrin) 1 mg PO HS [facility] Stop: 08/01/19 20:59 Last Admin: 06/11/19 21:03 Dose: 1 mg Timolol Maleate (Timoptic 0.5% Ophth Soln) 1 drop EACH EYE BID [facility] Stop: 08/01/19 16:59 Last Admin: 06/12/19 08:53 Dose: 1 drop Zolpidem Tartrate (Ambien) 5 mg PO HS PRN PRN Reason: Insomnia Stop: 08/01/19 14:09 Last Admin: 06/11/19 21:06 Dose: 5 mg General: demented HEENT: NC/AT, PERRLA Neck: Supple, No JVD Lungs: CTAB Cardiovascular: RRR, Normal S1, Normal S2, with murmur Abdomen: soft, non-tender, thin, positive bowel sound Extremities: excoriation Neurological: no change Internal Medicine Assmt/Plan - Assessment Assessment: ASSESSMENT AND PLAN: Hypercholesterolemia, BPH, chronic pain syndrome, osteoarthritis, diabetes, narcolepsy, - Plan Plan: PLAN: continue the patient on statin medication. Continue oral hypoglycemics and fingerstick. Continue on a proton pump inhibitor as well as pain medications. The patient will be placed on fall precaution. We will continue to follow with you, Dr. Dowling. Nutritional Asmnt/Malnutr-PDOC - Dietary Evaluation Malnutrition Findings (Please click <Entered> for more info): Nutritional Asmnt/Malnutrition Start: 06/06/19 13: 15 Text: Status: Complete Freq: Protocol: Document 06/06/19 13:15 JULIANN (Rec: 06/06/19 13:18 JULIANN [email or web address]) Nutritional Asmnt/Malnutrition Patient General Information Nutritional Screening Moderate Risk Diagnosis Psychosis Pertinent Medical Hx/Surgical Hx Hyperlipidemia, BPH, Osteoarthritis, Chronic Pain Syndrome, DM, Narcolepsy Subjective Information Pt is a 68-year-old male admitted on 06/01 d/t agitation and aggression escalation of behaviors, worsening confusion . Pt is eating an estimated 85 % of meals since admit date ( x4 days) Per Meal/Nutrition Activity Record. Dietary is currently providing an estimated 1700 kcals and 90 gm Pro, per pt PO intake this is providing an estimated 1445 kcals and 77g Pro to meet 72% kcal and 96% Pro needs. Will assess menu options and increase kcals on pt tray via consultant dietitian work flow. Anthropometrics HT: 511 WT: 181 LB (82.27 kg) BMI: 25.27 (Overweight) GI/ Skin Integrity GI: WNL, Soft, Non-tender BM: 06/04 x1 I/O: 1000/Not Noted Skin: WNL, Intact Nav: 22 Diet Order: [facility] Estimated Energy Needs: ( Geriatric, CBW) 8915-0792 kcals (25-30 kcals/ kg) 80-95g Pro (1.0-1.2 g/kg) 0743-3231 ml (25-30 ml/kg) Current Diet Order/ Nutrition Support [facility] Pertinent Medications Maalox (PRN), Lipitor, Glutose 40% (PRN), Vitamin D2, Amaryl , INS-SS, MOM (PRN), Glucophage, Theragran, Protonix, Provigil Pertinent Labs POC Glucose (last 24 hours): 72, 98, 95, 113, 100 06/01: Glucose 143, A1c 6.1%, Urine Glucose 2+ Nutritional Hx/Data Height 1.8 m Height (Calculated Centimeters) 180.3 Current Weight (lbs) 82.1 kg Weight (Calculated Kilograms) 82.1 Weight (Calculated Grams) 65504.2 [place] Body Weight 172 LB (78.18 kg) % [place] Body Weight 106 Body Mass Index (BMI) 25.2 Weight Status Overweight GI Symptoms GI Symptoms None Last BM 06/04 x1 Skin Integrity/Comment: Skin: WNL, Intact Nav: 22 Estimated Nutritional Goals BEE in Kcals: Using Current wt Calories/Kcals/Kg 25-30 Kcals Calculated 5021-5114 Protein: Using Current wt Protein g/k.0-1.2 Protein Calculated 80-95 Fluid: ml 2772-1087 ml (25-30 ml/kg) Nutritional Problem 1. Problem Problem Impaired nutrient utilization Etiology r/t endocrine dysfunction Signs/Symptoms: aeb labs (06/01) Glucose 143, A1c 6.1%, Urine Glucose 2+. Malnutrition Related to Morbid Obesity Malnutrition related to morbid obesity No Intervention/Recommendation Comments 1.Continue CCHO, Na2gm diet as tolerated. 2.Continue antihyperglycemic medications for glucose control per MD order. Expected Outcomes/Goals Expected Outcomes/Goals 1.PO intake to continue to meet 75% of estimated nutritional needs. 2.Monitor PO intake, wt, nutrition related labs to trend WNL, and skin integrity. 3.F/U as low risk in 7-10 days , 06/12-06/15
[2019-06-13] MEDS: Pantoprazole 40 mg/Packet PO SCH (06:57)
[2019-06-13] MEDS: INSULIN LISPRO SLIDING SCALE 100 UNITS/ML UNIT SUBQ SCH ×2 (06:58→16:05)
[2019-06-13] MEDS: Multivitamin Tab PO SCH (08:47)
--- NOTE | 2019-06-13 13:06 | Internal Medicine Prog Note ---
Internal Medicine Subjective - Subjective Patient seen and examined:: with staff, chart reviewed Patient is:: awake, verbal, interactive, talking Per staff patient has:: no adverse event, no episodes of fall, poor oral intake , tolerating meds Internal Medicine Objective - Results Recent Labs: Laboratory Last Values POC Glucose 102 MG/DL (70 - 105) 06/13/19 06:06 - Physical Exam Vitals and I&O: Vital Signs Temp 97.8 F 06/13/19 05:27 Pulse 69 06/13/19 05:27 Resp 20 06/13/19 05:27 BP 135/87 06/13/19 05:27 Pulse Ox 100 06/13/19 05:27 Intake & Output 06/12/19 06/13/19 06/13/19 18:59 06:59 18:59 Intake Total 900 120 Balance 900 120 Intake: Oral 900 120 Other: # Voids 3 3 # Bowel Movements 1 0 Active Medications: Current Medications Acetaminophen (Tylenol) 650 mg PO Q6H PRN PRN Reason: mild pain Stop: 08/01/19 15:14 Acetaminophen (Tylenol) 650 mg PO Q6H PRN PRN Reason: fever >100.5 Stop: 08/01/19 15:19 Al Hydrox/Mg Hydrox/Simethicone (Maalox) 30 ml PO Q4HR PRN PRN Reason: GI DISTRESS Stop: 08/01/19 14:09 Atorvastatin Calcium (Lipitor) 80 mg PO HS [facility]; Protocol Stop: 08/01/19 20:59 Last Admin: 06/12/19 20:34 Dose: 80 mg Brimonidine Tartrate (Alphagan 0.2% Ophth Soln) 1 drop EACH EYE Q8HR [facility] Stop: 08/02/19 04:59 Last Admin: 06/13/19 12:49 Dose: 1 drop Dextrose (Glutose 40%) 18.75 gm PO PRN PRN PRN Reason: BS Below 70 if tolerate po Stop: 08/01/19 15:57 Last Admin: 06/10/19 20:17 Dose: 18.75 gm Donepezil HCl (Aricept) 5 mg PO HS [facility] Stop: 08/06/19 20:59 Last Admin: 06/12/19 20:34 Dose: 5 mg Dorzolamide HCl (Trusopt 2% Ophth Soln) 1 drop EACH EYE BID [facility] Stop: 08/01/19 16:59 Last Admin: 06/13/19 08:45 Dose: 1 drop Ergocalciferol (Vitamin D2) 50,000 iu PO QSUN [facility] Stop: 08/04/19 08:59 Last Admin: 06/12/19 08:57 Dose: 50,000 iu Escitalopram Oxalate (Lexapro) 15 mg PO DAILY [facility]; Protocol Stop: 08/09/19 08:59 Last Admin: 06/13/19 08:45 Dose: 15 mg Glimepiride (Amaryl) 4 mg PO QDAC [facility] Stop: 08/02/19 07:29 Last Admin: 06/13/19 06:58 Dose: Not Given Glucagon (Glucagen) 1 mg IM PRN PRN PRN Reason: BS Below 70 if not tolerate po Stop: 08/01/19 15:57 Insulin Human Lispro (Humalog Insulin Sliding Scale) 0 units SUBQ BIDAC [facility]; Protocol Stop: 08/09/19 16:29 Last Admin: 06/13/19 06:58 Dose: Not Given Latanoprost (Xalatan 0.005% Oph Soln) 1 drop EACH EYE HS [facility] Stop: 08/01/19 20:59 Last Admin: 06/12/19 20:34 Dose: 1 drop Lorazepam (Ativan) 0.5 mg PO Q4HR PRN; Protocol PRN Reason: Anxiety Stop: 07/02/19 14:09 Last Admin: 06/11/19 19:38 Dose: 0.5 mg Magnesium Hydroxide (Milk Of Magnesia) 30 ml PO HS PRN PRN Reason: Constipation Memantine (Namenda) 5 mg PO BID [facility] Stop: 08/04/19 16:59 Last Admin: 06/13/19 08:47 Dose: 5 mg Metformin HCl (Glucophage) 1,000 mg PO BIDWM [facility] Stop: 08/02/19 11:59 Last Admin: 06/13/19 07:55 Dose: 1,000 mg Modafinil (Provigil) 200 mg PO BID [facility]; Protocol Stop: 08/01/19 16:59 Last Admin: 06/13/19 08:46 Dose: 200 mg Multivitamins/Vitamin C (Theragran) 1 tab PO DAILY [facility] Stop: 08/02/19 08:59 Last Admin: 06/13/19 08:47 Dose: 1 tab Pantoprazole Sodium (Protonix) 20 mg PO QDAC [facility] Stop: 08/10/19 07:29 Last Admin: 06/13/19 06:57 Dose: 20 mg Risperidone (Risperdal) 0.5 mg PO BID [facility]; Protocol Stop: 08/11/19 08:59 Last Admin: 06/13/19 08:47 Dose: 0.5 mg Terazosin HCl (Hytrin) 1 mg PO HS [facility] Stop: 08/01/19 20:59 Last Admin: 06/12/19 20:35 Dose: 1 mg Timolol Maleate (Timoptic 0.5% Ophth Soln) 1 drop EACH EYE BID [facility] Stop: 08/01/19 16:59 Last Admin: 06/13/19 08:44 Dose: 1 drop Zolpidem Tartrate (Ambien) 5 mg PO HS PRN PRN Reason: Insomnia Stop: 08/01/19 14:09 Last Admin: 06/11/19 21:06 Dose: 5 mg General: demented HEENT: NC/AT, PERRLA Neck: Supple, No JVD Lungs: CTAB Cardiovascular: RRR, Normal S1, Normal S2, with murmur Abdomen: soft, non-tender, thin, positive bowel sound Extremities: excoriation Neurological: no change Internal Medicine Assmt/Plan - Assessment Assessment: ASSESSMENT AND PLAN: Hypercholesterolemia, BPH, chronic pain syndrome, osteoarthritis, diabetes, narcolepsy, - Plan Plan: PLAN: continue the patient on statin medication. Continue oral hypoglycemics and fingerstick. Continue on a proton pump inhibitor as well as pain medications. The patient will be placed on fall precaution. We will continue to follow with you, Dr. Dowling. Nutritional Asmnt/Malnutr-PDOC - Dietary Evaluation Malnutrition Findings (Please click <Entered> for more info): Nutritional Asmnt/Malnutrition Start: 06/06/19 13: 15 Text: Status: Complete Freq: Protocol: Document 06/06/19 13:15 JULIANN (Rec: 06/06/19 13:18 JULIANN [email or web address]) Nutritional Asmnt/Malnutrition Patient General Information Nutritional Screening Moderate Risk Diagnosis Psychosis Pertinent Medical Hx/Surgical Hx Hyperlipidemia, BPH, Osteoarthritis, Chronic Pain Syndrome, DM, Narcolepsy Subjective Information Pt is a 68-year-old male admitted on 06/01 d/t agitation and aggression escalation of behaviors, worsening confusion . Pt is eating an estimated 85 % of meals since admit date ( x4 days) Per Meal/Nutrition Activity Record. Dietary is currently providing an estimated 1700 kcals and 90 gm Pro, per pt PO intake this is providing an estimated 1445 kcals and 77g Pro to meet 72% kcal and 96% Pro needs. Will assess menu options and increase kcals on pt tray via dietician work flow. Anthropometrics HT: 511 WT: 181 LB (82.27 kg) BMI: 25.27 (Overweight) GI/ Skin Integrity GI: WNL, Soft, Non-tender BM: 06/04 x1 I/O: 1000/Not Noted Skin: WNL, Intact Nav: 22 Diet Order: [facility] Estimated Energy Needs: ( Geriatric, CBW) 1654-4652 kcals (25-30 kcals/ kg) 80-95g Pro (1.0-1.2 g/kg) 3110-4907 ml (25-30 ml/kg) Current Diet Order/ Nutrition Support [facility] Pertinent Medications Maalox (PRN), Lipitor, Glutose 40% (PRN), Vitamin D2, Amaryl , INS-SS, MOM (PRN), Glucophage, Theragran, Protonix, Provigil Pertinent Labs POC Glucose (last 24 hours): 72, 98, 95, 113, 100 06/01: Glucose 143, A1c 6.1%, Urine Glucose 2+ Nutritional Hx/Data Height 1.8 m Height (Calculated Centimeters) 180.3 Current Weight (lbs) 82.1 kg Weight (Calculated Kilograms) 82.1 Weight (Calculated Grams) 91429.2 [place] Body Weight 172 LB (78.18 kg) % [place] Body Weight 106 Body Mass Index (BMI) 25.2 Weight Status Overweight GI Symptoms GI Symptoms None Last BM 06/04 x1 Skin Integrity/Comment: Skin: WNL, Intact Nav: 22 Estimated Nutritional Goals BEE in Kcals: Using Current wt Calories/Kcals/Kg 25-30 Kcals Calculated 5222-6963 Protein: Using Current wt Protein g/k.0-1.2 Protein Calculated 80-95 Fluid: ml 0203-8649 ml (25-30 ml/kg) Nutritional Problem 1. Problem Problem Impaired nutrient utilization Etiology r/t endocrine dysfunction Signs/Symptoms: aeb labs (06/01) Glucose 143, A1c 6.1%, Urine Glucose 2+. Malnutrition Related to Morbid Obesity Malnutrition related to morbid obesity No Intervention/Recommendation Comments 1.Continue CCHO, Na2gm diet as tolerated. 2.Continue antihyperglycemic medications for glucose control per MD order. Expected Outcomes/Goals Expected Outcomes/Goals 1.PO intake to continue to meet 75% of estimated nutritional needs. 2.Monitor PO intake, wt, nutrition related labs to trend WNL, and skin integrity. 3.F/U as low risk in 7-10 days , 06/12-06/15
--- NOTE | 2019-06-13 13:13 | Progress Notes ---
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 Fair sleep and appetite. Staff noting he has been calmer this morning. We will continue inpatient monitoring. On exam, he is confused, disoriented, unkempt, needing high level of prompting, redirection. No SI, no HI, ongoing delusions noted. Vitals were noted. Blood pressure 142/63, pulse of 76. Any recent labs were reviewed, discussed with nursing staff. PLAN: We will continue to monitor. [facility]# [id number]
[2019-06-14] MEDS: Pantoprazole 40 mg/Packet PO SCH (07:00)
[2019-06-14] MEDS: Multivitamin Tab PO SCH (08:17)
--- NOTE | 2019-06-14 12:41 | Internal Medicine Prog Note ---
Internal Medicine Subjective - Subjective Patient seen and examined:: with staff, chart reviewed Patient is:: awake, verbal, interactive, talking Per staff patient has:: no adverse event, no episodes of fall, poor oral intake , tolerating meds Internal Medicine Objective - Results Recent Labs: Laboratory Last Values POC Glucose 111 MG/DL (70 - 105) H 06/14/19 06:41 - Physical Exam Vitals and I&O: Vital Signs Temp 97.5 F 06/14/19 05:31 Pulse 75 06/14/19 05:31 Resp 18 06/14/19 05:31 BP 119/62 06/14/19 05:31 Pulse Ox 95 06/14/19 05:31 Intake & Output 06/13/19 06/14/19 06/14/19 18:59 06:59 18:59 Intake Total 1000 240 Balance 1000 240 Intake: Oral 1000 240 Other: # Voids 4 1 # Bowel Movements 1 Active Medications: Current Medications Acetaminophen (Tylenol) 650 mg PO Q6H PRN PRN Reason: mild pain Stop: 08/01/19 15:14 Acetaminophen (Tylenol) 650 mg PO Q6H PRN PRN Reason: fever >100.5 Stop: 08/01/19 15:19 Al Hydrox/Mg Hydrox/Simethicone (Maalox) 30 ml PO Q4HR PRN PRN Reason: GI DISTRESS Stop: 08/01/19 14:09 Atorvastatin Calcium (Lipitor) 80 mg PO HS MICHAELA; Protocol Stop: 08/01/19 20:59 Last Admin: 06/13/19 21:02 Dose: 80 mg Brimonidine Tartrate (Alphagan 0.2% Ophth Soln) 1 drop EACH EYE Q8HR MICHAELA Stop: 08/02/19 04:59 Last Admin: 06/13/19 21:02 Dose: 1 drop Dextrose (Glutose 40%) 18.75 gm PO PRN PRN PRN Reason: BS Below 70 if tolerate po Stop: 08/01/19 15:57 Last Admin: 06/10/19 20:17 Dose: 18.75 gm Donepezil HCl (Aricept) 5 mg PO HS MICHAELA Stop: 08/06/19 20:59 Last Admin: 06/13/19 21:02 Dose: 5 mg Dorzolamide HCl (Trusopt 2% Ophth Soln) 1 drop EACH EYE BID MICHAELA Stop: 08/01/19 16:59 Last Admin: 06/14/19 08:16 Dose: 1 drop Ergocalciferol (Vitamin D2) 50,000 iu PO QSUN [facility] Stop: 08/04/19 08:59 Last Admin: 06/12/19 08:57 Dose: 50,000 iu Escitalopram Oxalate (Lexapro) 15 mg PO DAILY [facility]; Protocol Stop: 08/09/19 08:59 Last Admin: 06/14/19 08:17 Dose: 15 mg Glimepiride (Amaryl) 4 mg PO QDAC [facility] Stop: 08/02/19 07:29 Last Admin: 06/14/19 07:00 Dose: 4 mg Glucagon (Glucagen) 1 mg IM PRN PRN PRN Reason: BS Below 70 if not tolerate po Stop: 08/01/19 15:57 Insulin Human Lispro (Humalog Insulin Sliding Scale) 0 units SUBQ BIDAC [facility]; Protocol Stop: 08/09/19 16:29 Last Admin: 06/13/19 16:05 Dose: Not Given Latanoprost (Xalatan 0.005% Oph Soln) 1 drop EACH EYE HS [facility] Stop: 08/01/19 20:59 Last Admin: 06/13/19 21:02 Dose: 1 drop Lorazepam (Ativan) 0.5 mg PO Q4HR PRN; Protocol PRN Reason: Anxiety Stop: 07/02/19 14:09 Last Admin: 06/11/19 19:38 Dose: 0.5 mg Magnesium Hydroxide (Milk Of Magnesia) 30 ml PO HS PRN PRN Reason: Constipation Memantine (Namenda) 5 mg PO BID [facility] Stop: 08/04/19 16:59 Last Admin: 06/14/19 08:17 Dose: 5 mg Metformin HCl (Glucophage) 1,000 mg PO BIDWM [facility] Stop: 08/02/19 11:59 Last Admin: 06/14/19 08:17 Dose: 1,000 mg Modafinil (Provigil) 200 mg PO BID [facility]; Protocol Stop: 08/01/19 16:59 Last Admin: 06/14/19 08:17 Dose: 200 mg Multivitamins/Vitamin C (Theragran) 1 tab PO DAILY [facility] Stop: 08/02/19 08:59 Last Admin: 06/14/19 08:17 Dose: 1 tab Pantoprazole Sodium (Protonix) 20 mg PO QDAC MICHAELA Stop: 08/10/19 07:29 Last Admin: 06/14/19 07:00 Dose: 20 mg Risperidone (Risperdal) 0.5 mg PO BID MICHAELA; Protocol Stop: 08/11/19 08:59 Last Admin: 06/14/19 08:18 Dose: 0.5 mg Terazosin HCl (Hytrin) 1 mg PO HS MICHAELA Stop: 08/01/19 20:59 Last Admin: 06/13/19 21:02 Dose: 1 mg Timolol Maleate (Timoptic 0.5% Ophth Soln) 1 drop EACH EYE BID MICHAELA Stop: 08/01/19 16:59 Last Admin: 06/14/19 08:16 Dose: 1 drop Zolpidem Tartrate (Ambien) 5 mg PO HS PRN PRN Reason: Insomnia Stop: 08/01/19 14:09 Last Admin: 06/13/19 21:05 Dose: 5 mg General: demented HEENT: NC/AT, PERRLA Neck: Supple, No JVD Lungs: CTAB Cardiovascular: RRR, Normal S1, Normal S2, with murmur Abdomen: soft, non-tender, thin, positive bowel sound Extremities: excoriation Neurological: no change Internal Medicine Assmt/Plan - Assessment Assessment: ASSESSMENT AND PLAN: Hypercholesterolemia, BPH, chronic pain syndrome, osteoarthritis, diabetes, narcolepsy, - Plan Plan: PLAN: continue the patient on statin medication. Continue oral hypoglycemics and fingerstick. Continue on a proton pump inhibitor as well as pain medications. The patient will be placed on fall precaution. We will continue to follow with you, Dr. Dowling. Nutritional Asmnt/Malnutr-PDOC - Dietary Evaluation Malnutrition Findings (Please click <Entered> for more info): Nutritional Asmnt/Malnutrition Start: 06/06/19 13: 15 Text: Status: Complete Freq: Protocol: Document 06/06/19 13:15 JULIANN (Rec: 06/06/19 13:18 JULIANN [id number]) Nutritional Asmnt/Malnutrition Patient General Information Nutritional Screening Moderate Risk Diagnosis Psychosis Pertinent Medical Hx/Surgical Hx Hyperlipidemia, BPH, Osteoarthritis, Chronic Pain Syndrome, DM, Narcolepsy Subjective Information Pt is a 68-year-old male admitted on 06/01 d/t agitation and aggression escalation of behaviors, worsening confusion . Pt is eating an estimated 85 % of meals since admit date ( x4 days) Per Meal/Nutrition Activity Record. Dietary is currently providing an estimated 1700 kcals and 90 gm Pro, per pt PO intake this is providing an estimated 1445 kcals and 77g Pro to meet 72% kcal and 96% Pro needs. Will assess menu options and increase kcals on pt tray via lottery clerk work flow. Anthropometrics HT: 511 WT: 181 LB (82.27 kg) BMI: 25.27 (Overweight) GI/ Skin Integrity GI: WNL, Soft, Non-tender BM: 06/04 x1 I/O: 1000/Not Noted Skin: WNL, Intact Nav: 22 Diet Order: [facility] Estimated Energy Needs: ( Geriatric, CBW) 4741-7075 kcals (25-30 kcals/ kg) 80-95g Pro (1.0-1.2 g/kg) 3070-2341 ml (25-30 ml/kg) Current Diet Order/ Nutrition Support [facility] Pertinent Medications Maalox (PRN), Lipitor, Glutose 40% (PRN), Vitamin D2, Amaryl , INS-SS, MOM (PRN), Glucophage, Theragran, Protonix, Provigil Pertinent Labs POC Glucose (last 24 hours): 72, 98, 95, 113, 100 06/01: Glucose 143, A1c 6.1%, Urine Glucose 2+ Nutritional Hx/Data Height 1.8 m Height (Calculated Centimeters) 180.3 Current Weight (lbs) 82.1 kg Weight (Calculated Kilograms) 82.1 Weight (Calculated Grams) 49555.2 [place] Body Weight 172 LB (78.18 kg) % [place] Body Weight 106 Body Mass Index (BMI) 25.2 Weight Status Overweight GI Symptoms GI Symptoms None Last BM 06/04 x1 Skin Integrity/Comment: Skin: WNL, Intact Nav: 22 Estimated Nutritional Goals BEE in Kcals: Using Current wt Calories/Kcals/Kg 25-30 Kcals Calculated 4777-7110 Protein: Using Current wt Protein g/k.0-1.2 Protein Calculated 80-95 Fluid: ml 3510-6616 ml (25-30 ml/kg) Nutritional Problem 1. Problem Problem Impaired nutrient utilization Etiology r/t endocrine dysfunction Signs/Symptoms: aeb labs (06/01) Glucose 143, A1c 6.1%, Urine Glucose 2+. Malnutrition Related to Morbid Obesity Malnutrition related to morbid obesity No Intervention/Recommendation Comments 1.Continue CCHO, Na2gm diet as tolerated. 2.Continue antihyperglycemic medications for glucose control per MD order. Expected Outcomes/Goals Expected Outcomes/Goals 1.PO intake to continue to meet 75% of estimated nutritional needs. 2.Monitor PO intake, wt, nutrition related labs to trend WNL, and skin integrity. 3.F/U as low risk in 7-10 days , 06/12-06/15
--- NOTE | 2019-06-14 15:02 | Discharge Summary ---
DATE OF DISCHARGE: 06/14/2019 HISTORY OF PRESENT ILLNESS: A 68-year-old male admitted to the hospital from a residential, aggressive, agitated, unruly and delusional. PAST PSYCHIATRIC HISTORY: Advanced dementia, likely delusional disorder. PAST MEDICAL HISTORY: Please see full H and P. SOCIAL HISTORY: Coming from a residential. DIAGNOSES: Dementia, delusional disorder is ruled out, unremarkable. Please see full H and P. 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 Over the course of treatment, he was calm, generally more cooperative. At one point, he was defecating on the floor, acting very strange ____ behavior is calm, cooperative. No agitation, more redirectable, very confused. CONDITION UPON DISCHARGE: Improved. Ongoing delusions. No SI, no HI, no voices, no agitation. DISCHARGE DIAGNOSES: Dementia, dementia with behaviors, delusional disorder. MEDICAL HISTORY: Please see full H and P. PROGNOSIS: The patient follows up with outpatient mental health services and remains treatment compliant. Prognosis will improve, otherwise guarded. JOB# [id number]
[2019-06-14] MEDS: INSULIN LISPRO SLIDING SCALE 100 UNITS/ML UNIT SUBQ SCH (16:00)
== END 2019-06-14 18:30 | DRG 885 ==
LOC: GERO 06-02 12:34
PROVIDERS: ADMIT Psychiatry & Neurology Psychiatry; ATTEND Psychiatry & Neurology Psychiatry
DX: F22 Delusional disorders (principal); N40.0 Benign prostatic hyperplasia without lower urinary tract symptoms; E78.00 Pure hypercholesterolemia, unspecified; G89.4 Chronic pain syndrome; M19.90 Unspecified osteoarthritis, unspecified site; E11.9 Type 2 diabetes mellitus without complications; F41.9 Anxiety disorder, unspecified; G47.419 Narcolepsy without cataplexy; F03.90 Unspecified dementia, unspecified severity, without behavioral disturbance, psychotic disturbance, mood disturbance, and anxiety; Z79.899 Other long term (current) drug therapy
CPT/HCPCS: 82948-90; 83036-90; G0410; Z7610